=== PATIENT | female | born 1950 | race Caucasian/White ===

== ENCOUNTER 2018-07-24 09:24 | Outpatient (CLI) | payer MEDICARE, OTHER, SELFPAY ==
--- NOTE | 2018-07-24 09:15 | DI.MAMMO_ITS ---
SYMPTOM/DIAGNOSIS: SCREENING, Z12.31 BILATERAL SCREENING MAMMOGRAM: Mammograms were interpreted according to the usual protocol including computer analysis with CAD system, tomosynthesis and C view imaging. Comparison is made with exams from 2011 through 2017. The breasts are composed of heterogeneously dense fibroglandular tissue. Breast density category C. There is a question of an area of architectural distortion in the upper outer quadrant of the right breast vs overlying fibroglandular tissue. Spot compression views and ultrasound are requested for further evaluation. No suspicious calcifications are seen in either breast. There has been no change in the appearance of the left breast. IMPRESSION: Left breast category 1, negative. Breast density category C. Right breast category 0. SA ASSESSMENT OF FINDINGS: Incomplete: Needs additional imaging evaluation. Category 0. Patient will receive a letter notifying them of these results. Bi-RADS category C. The breasts are heterogeneously dense, which may obscure small masses.
== END 2018-07-24 09:44 ==
PROVIDERS: PCP Nurse Practitioner Family; Visit Provider Nurse Practitioner Family
DX: Z12.31 Encounter for screening mammogram for malignant neoplasm of breast (principal); R92.8 Other abnormal and inconclusive findings on diagnostic imaging of breast
CPT/HCPCS: 77063; 77067

== ENCOUNTER 2018-07-31 00:39 | Outpatient (CLI) | payer MEDICARE, OTHER, SELFPAY ==
--- NOTE | 2018-07-31 14:27 | DI.COMBO_ITS ---
SYMPTOMS/DIAGNOSIS: F/U MAMMO, ? AREA OF ARCHITECTURAL DISTORTION UPPER OUTER QUAD RT BREAST VS OVERLYING FIBROGLANDULAR TISSUE ADDITIONAL VIEWS OF THE RIGHT BREAST AND RIGHT BREAST ULTRASOUND: Additional images are interpreted according to the usual protocol including tomosynthesis and 2D imaging. Breast density C. The area of architectural distortion persists in the outer right breast. A right breast ultrasound was performed. The upper outer and lower outer quadrants were evaluated sonographically. There is a hypoechoic spiculated area at the 9:00 o'clock position of the right breast lateral to the nipple. There is posterior acoustic shadowing present. The area measures 0.8 cm x 1 cm x 0.7 cm. This appears to correspond to the mammographic abnormality. IMPRESSION: 1 cm spiculated hypoechoic mass at the 9:00 o'clock position of the right breast. The finding is suspicious for malignancy. Biopsy is recommended. Category 5. The findings were discussed with the patient and Yuko Lomeli on the date of the examination. MQSA ASSESSMENT OF FINDINGS: Highly suspicious of malignancy. Biopsy should be obtained. Category 5. Patient will receive a letter notifying them of these results. Bi-RADS category C. The breasts are heterogeneously dense, which may obscure small masses.
== END 2018-07-31 00:59 ==
PROVIDERS: PCP Nurse Practitioner Family; Visit Provider Nurse Practitioner Family
DX: Z12.31 Encounter for screening mammogram for malignant neoplasm of breast (principal); R92.8 Other abnormal and inconclusive findings on diagnostic imaging of breast; N63.11 Unspecified lump in the right breast, upper outer quadrant
CPT/HCPCS: 76642; 77063; 77067

== ENCOUNTER 2018-11-17 18:12 | Emergency (ER) | payer MEDICARE, OTHER, SELFPAY ==
[2018-11-17 18:17] VITALS: BP 159/82; PULSE 120; RESP 20; TEMP 36.7; O2SAT 95
[2018-11-17] MEDS: Normal Saline 1,000 ML 1000 ML IV (18:45)
[2018-11-17] MEDS: Albuterol/Ipratropium 3 ML UPD VIAL 6 ML UPD (18:45)
--- NOTE | 2018-11-17 18:51 | DI.RAD_ITS ---
SYMPTOM/DIAGNOSIS: COUGH, WHEEZE, ? PNEUMONIA PA AND LATERAL CHEST: Comparison is made with 07/03/08. The heart size is normal. The lungs are hyperinflated and show mild parenchymal scarring and increased interstitial changes, worsening when compared with the previous exam. No acute infiltrate, effusion or pulmonary edema is seen. IMPRESSION: No acute abnormality.
[2018-11-17 19:00] LABS: Abs Immature Grans 0.01 k/cumm (0.0-0.09); Absolute Basophil Count 0.09 k/cumm (0.0-0.2); Absolute Eosinophil Count 0.65 k/cumm (0.0-0.7); Absolute Lymphocyte Count 1.42 k/cumm (1.2-3.4); Absolute Monocyte Count 0.36 k/cumm (0.11-0.7); Absolute Neutrophil Count 2.69 k/cumm (1.2-6.7); Basophils % 1.7; Eosinophils % 12.5; HCT 41.3 % (36.0-46.0); HGB 13.4 g/dL (12.0-15.5); Immature Grans % 0.2; Lymphocytes % 27.2; Mean Corp. HGB Concentration 32.4 g/dL (32.0-36.0); Mean Corpuscular Hemoglobin 29.5 pg (27.0-33.0); Mean Corpuscular Volume 90.8 fL (80-95); Mean Platelet Volume 10.9 fL (8.0-11.0); Monocytes % 6.9; Neutrophils % 51.5; Platelet Count 258 x1000/uL (130-400); RBC 4.55 m/cumm (4.00-5.20); RBC Distribution Width 12.7 % (11.7-14.6); White Blood Cell Count 5.22 k/cumm (4.4-10.8)
[2018-11-17 19:13] LABS: ALT 15 U/L (12-78); AST 14 U/L (15-37); Albumin 4.1 g/dL (3.4-5.0); Alkaline Phosphatase 94 U/L (46-116); Anion Gap 8.8 mmol/L (3-11); BUN 11 mg/dL (7-18); Bilirubin, Total 0.6 mg/dL (0.2-1.0); CO2 27.2 mmol/L (21.0-32.0); CREATININE 0.96 mg/dL (0.55-1.02); Chloride 105 mmol/L (98-107); Glucose 97 mg/dL (70-100); Potassium 3.3 mmol/L (3.5-5.1); Sodium 141 mmol/L (136-145); Total Protein 7.8 g/dL (6.4-8.2)
--- NOTE | 2018-11-17 19:13 | DI.VRAD_ITS ---
EXAM: XR Chest, 2 Views EXAM DATE/TIME: 11/17/2018 6:53 PM CLINICAL HISTORY: 68 years old, female; Signs and symptoms; Cough and wheezing; Patient HX: Cough, wheezing, suspect pneumonia. TECHNIQUE: Imaging protocol: XR of the chest, 2 views. COMPARISON: No relevant prior studies available. FINDINGS: Lungs: Mild hyperinflation with no airspace consolidation. Pleural space: No pleural effusion. No pneumothorax. Heart/Mediastinum: No cardiomegaly. Vasculature: Tortuous descending thoracic aorta. Bones/joints: Lumbar levoscoliosis. Exaggerated thoracic kyphosis. Degenerative changes in the spine. IMPRESSION: Mild hyperinflation with no airspace consolidation. Dictated and Authenticated by: Sheryl Chaney MD. Ordering:PATRIC José MD
[2018-11-17 19:18] LABS: Troponin I < 0.02 ng/mL (0.00-0.06)
--- NOTE | 2018-11-17 19:25 | ED.GENADUL_ITS ---
Discharge Plan Disposition Patient Disposition: HOME Condition: Good Discharge Details Chief Complaint: RespSymp Clinical Impression: RAD (reactive airway disease), Bronchitis Reason For Visit: cough Primary Care Provider: Yuko Lomeli ED Provider: Arnav Avila Home Meds and New Rx's Prescriptions: No Action benzonatate 100 mg Capsule 100 mg PO TID PRNRF: 0 amoxicillin-pot clavulanate [Augmentin] 875-125 mg Tablet 1 tab PO BID RF: 0 Probiotic 100 billion cell Capsule 1 cap PO DAILY RF: 0 Discharge Instructions Instructions: Acute Bronchitis (ED), Reactive Airways Disease (ED) Additional Instructions: Please continue taking your antibiotic, and inhaler as directed. If you notice any worsening of your symptoms, or any new symptoms such as vomiting, diarrhea, fever, chills, shortness of breath, chest pain, numbness, weakness, or fainting , please return immediately to the emergency department for reevaluation. Please follow up with your primary care provider as soon as possible for reassessment and reevaluation. As always, it was a pleasure participating in your medical care today. Referrals: Yuko Lomeli [Primary Care Provider] - Medical Decision Making This is a 68-year-old female with a past medical history of lumpectomy, breast cancer, who recently had surgical excision with complete removal of the lesion. For the last 2 weeks the patient has had a mild cold, start with upper respiratory congestion-like symptoms, followed by a cough. She has had a cough for the last week, with productive yellow sputum. Patient was started on Augmentin and Tessalon Perles 1 day ago and was actually noticing an improvement of her symptoms. However 1 hour prior to arrival the patient had a notable coughing fit, and came to the ER for evaluation. Upon arrival to the ER the coughing fit had resolved, physical exam did demonstrate mild wheezes in the lungs, she otherwise had no chest pain, shortness of breath, arm neck or shoulder pain whatsoever. Signs and symptoms are inconsistent with cardiac etiology. 16 the patient was given a breathing treatment and had notable improvement of her wheeze and states that she feels much better with that. We did get a chest x-ray which shows no evidence of acute severe pneumonia. For the patient's productive cough, and symptomatology I do feel that is certainly reasonable to continue the Augmentin and Tessalon Perles at home. Initially the patient's heart rate was 120 when she first arrived, she states that she was notably anxious, however within a few minutes her heart rate went to a normal level. The patient's laboratory workup is returned and demonstrates normal white count, normal hemoglobin, normal electrolytes aside for slightly low potassium, normal troponin. Patient signs and symptoms are clinically consistent with bronchitis and mild community-acquired pneumonia, inconsistent clinically at this time with severe PE, ACS, dissection. As patient is feeling notably better, and is requesting discharge home which I do feel is reasonable at this time. I had a long discussion with her regarding red flags which to return, as well as the importance of close follow-up and she and family agree. We will add an inhaler for home use. I have extensively reviewed the treatment plan and discharge instructions with the patient and their family. I have addressed all patient concerns at this time. The patient and family was made aware of what symptoms to monitor for that would warrant a return to the emergency department. Discussed the plan with the patient and family, they demonstrate verbal understanding and agreement with our assessment and plan at this time. EKG 19: 39 Rate 90, intervals normal, sinus rhythm, no significant ST elevations or depression, no Q waves, inverted T wave in V1. No evidence of STEMI. HPI General Date/Time Provider Initiated Documentation: 11/17/18 18:13 . HPI Narrative: This is a 68-year-old female with a past medical history of right- sided breast cancer, with subsequent lumpectomy in August who is scheduled to have radiation therapy later this year, who presents today for evaluation of cough. Patient states that for the last 2 weeks she has had a mild cough, she was seen and assessed by her primary care provider, who started her on Augmentin and Tessalon Perles. Patient states that she has been taking this for the last day and a half and has been doing very well, however roughly 1 hour prior to arrival the patient had a very brief choking episode secondary to sputum, and felt notably short of breath at that time. She was coughing for roughly an hour however by the time that she arrived in the ER the cough had completely resolved and she was feeling much better. She denies any chest pain, symptoms of shortness of breath, pleuritic chest pain, chest heaviness, arm neck or shoulder pain. She denies any history of cardiac disease. She has no other complaints at this time. Additionally the patient states that over the last day and a half she has been taking the antibiotic she has actually been starting to feel much better than she was before. She denies any significant fever, chills, vomiting, diarrhea. She does admit to some productivity for her cough with yellow sputum. Related Data Home Medications Medication Instructions Recorded Confirmed Lactobac 40-Bifido 3-S.thermop 1 cap PO DAILY 11/17/18 11/17/18 [Probiotic] amoxicillin-pot clavulanate 1 tab PO BID 11/17/18 11/17/18 [Augmentin] benzonatate 100 mg PO TID PRN 11/17/18 11/17/18 Allergies Allergy/AdvReac Type Severity Reaction Status Date / Time No Known Allergies Allergy Unverified 11/17/18 18:26 General Stated Complaint: RespSymp ROSSY: 3 Review of Systems Review of Systems All systems reviewed & are unremarkable except as noted in HPI and below PFSH Medical History Retinal tear of right eye (Acute) Breast CA (Chronic) Surgical History History of cataract surgery (Chronic) Social History Smoking/Tobacco Use Status: Never Alcohol Intake: current Drug use: Never Do you feel safe at home: Yes Exam Narrative Exam Narrative: 1.Const: Well-nourished, Well-developed, appearing stated age 2.Eyes: PERRL, no conjunctival injection, and symmetrical lids. 3.ENT: Atraumatic external nose and ears. Moist MM. Neck: Symmetric, trachea midline, No thyromegaly. 4.CVS: +S1/S2, No murmurs or gallops. Peripheral pulses 2+ and equal in all extremities. Brisk capillary refill in all extremities. 5.RESP: Unlabored respiratory effort. Minimal wheezes in the lower lung elias. Minimal crackles, no signs of respiratory distress. 6.GI: Soft, Nontender/Nondistended, No hepatosplenomegaly. No guarding or rebound. 7.MSK: Normocephalic/Atraumatic, Extremities w/o deformity or ttp No cyanosis or clubbing, Normal movement of all extremities 8.Skin: Warm, Dry. No rashes or lesions. 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 Sensation grossly intact, no focal neurolog ic deficits. 10.Psych: (AAO) x3. Appropriate mood and affect Course Vital Signs Temperature 36.7 C 11/17/18 18:17 Pulse 120 H 11/17/18 18:17 Respiratory Rate 20 11/17/18 18:17 Blood Pressure 159/82 H 11/17/18 18:17 Pulse Oximetry 95 11/17/18 18:17 Temperature 36.7 C 11/17/18 18:17 Temperature Source Skin 11/17/18 18:17 Pulse 120 H 11/17/18 18:17 Respiratory Rate 20 11/17/18 18:17 Respiratory Effort 11/17/18 18:21 Blood Pressure 159/82 H 11/17/18 18:17 Pulse Oximetry 95 11/17/18 18:17 Pain Level 1 11/17/18 18:17 Lab/Test Results Lab/Test Results: Laboratory Tests Range/Units 11/17/18 18:44 WBC (4.4-10.8) k/cumm 5.22 RBC (4.00-5.20) m/cumm 4.55 Hgb (12.0-15.5) g/dL 13.4 Hct (36.0-46.0) % 41.3 MCV (80-95) fL 90.8 MCH (27.0-33.0) pg 29.5 MCHC (32.0-36.0) g/dL 32.4 RDW (11.7-14.6) % 12.7 Plt Count (130-400) x1000/uL 258 MPV (8.0-11.0) fL 10.9 Immature Gran % 0.2 Neutrophils % 51.5 Lymphocytes % 27.2 Monocytes % 6.9 Eosinophils % 12.5 Basophils % 1.7 Absolute Neutrophils (1.2-6.7) k/cumm 2.69 Absolute Lymphocytes (1.2-3.4) k/cumm 1.42 Absolute Monocytes (0.11-0.7) k/cumm 0.36 Absolute Eosinophils (0.0-0.7) k/cumm 0.65 Absolute Basophils (0.0-0.2) k/cumm 0.09
[2018-11-17] MEDS: Potassium Chloride 20 MEQ TABCR 40 MEQ PO (19:47)
[2018-11-17] MEDS: Albuterol HFA 8 GM 60 PUFF INH IH (20:08)
[2018-11-17 20:09] VITALS: BP 150/57; PULSE 98; RESP 16
== END 2018-11-17 20:22 | disposition home or self-care (01) ==
PROVIDERS: Emergency Provider Student in an Organized Health Care Education/Training Program; PCP Nurse Practitioner Family
DX: J45.909 Unspecified asthma, uncomplicated (principal); R00.0 Tachycardia, unspecified
CPT/HCPCS: 36415; 80053; 93005; 94640; 96360; 99285; 71046; 84484; 85025; 93010; J7620

== ENCOUNTER 2018-12-10 19:29 | Emergency (ER) | payer MEDICARE, OTHER, SELFPAY ==
[2018-12-10 19:44] LABS: Bilirubin Negative (Negative); Blood Negative (Negative); Clarity Clear; Glucose Negative (Negative); Ketones Negative (Negative); Leukocyte Esterase Negative (Negative); Nitrite Negative (Negative); Specific Gravity <= 1.005 (1.005-1.025); Urobilinogen 0.2 EU/dL (Up TO 0.2)
[2018-12-10 19:48] VITALS: BP 135/70; PULSE 89; RESP 17; TEMP 37.1; O2SAT 99
--- NOTE | 2018-12-10 20:05 | ED.GENADUL_ITS ---
Discharge Plan Disposition Patient Disposition: HOME Condition: Stable Discharge Details Chief Complaint: Dizzy/Sync Clinical Impression: Tremor, Vertigo Primary Care Provider: Yuko Lomeli ED Provider: Arjun Yen Home Meds and New Rx's Prescriptions: New meclizine 25 mg tablet 25 mg PO BID-TID PRN (Reason: dizziness) Qty: 30 RF: 0 amoxicillin-pot clavulanate [Augmentin] 875-125 mg tablet 1 tab PO BID Qty: 14 RF: 0 No Action benzonatate 100 mg Capsule 100 mg PO TID PRNRF: 0 amoxicillin-pot clavulanate [Augmentin] 875-125 mg Tablet 1 tab PO BID RF: 0 Probiotic 100 billion cell Capsule 1 cap PO DAILY RF: 0 Discharge Instructions Instructions: Vertigo (ED) Additional Instructions: Follow up with your primary care provider within 1 week for repeat evaluation if you feel you are becoming more ill, develop fevers or difficulty breathing return to the emergency department Medical Decision Making 68 yo female with hx of breast cancer undergoing radiation and had surgery over a month ago per pt, comes in with chief complaint of feeling shaky and dizzy for about a month. Denies chest william, sob, feeling as though she may pass out. She states her arms shake and that she feels unsteady. She describes her dizziness as intermittent room spinning. She currently has no focal neuro deficits, NIH of 0 and has a steady gait. She does have an action tremor of the hands and arms on exam . She has no weakness. I suspect her symptoms are due to her tremor but dolores delfina for electrolyte abnormalities. NO evidence of cva given noraml neuro exam. Given her age will obtain head ct to eval for possible mets vs sdh. No chest pain, sob or lightheadedness/syncope so doubt cardiacetiology such as arrythmia, acs, and no jhypoxia, tachycardia or evidence of dvt on exam so doubt PE at this time. No neck pain and steady gait so doubt dissection pt remains stable with no neuro deficits. Labs and imaging unremarkable other than sinusitis and she now does state she's had over a week of sinus pressure so kvng tx for this. Will have her f/u with pcp and return precautions given Differential Diagnosis essential tremor, electrolyte abnormality, sdh Medical Records Medical records reviewed: Yes I reviewed the patient's medical records. Imaging Data Radiologic Study: Attestation: I personally reviewed and interpreted this imaging study as follows: Imaging: CT Scan Radiologist's impression: IMPRESSION: 1. No acute intracranial abnormality. 2. Paranasal sinus inflammatory disease with fluid level in the left maxillary sinus, which may be seen with acute sinusitis. Lab Data Lab results reviewed: Yes I reviewed the patient's lab results. ECG Data Attestation: I personally reviewed and interpreted this ECG (s) as follows: Prior ECG tracings: available for review Interpretation: sinus rhythm, rate of 70, pr 154, no acute st t wave ischemic changes HPI General Mode of arrival: ambulatory . Date/Time Provider Initiated Documentation: 12/10/18 19:56 . Limitations to Documentation: no limitations . History of Present Illness 68 year old F presents to the emergency department with the chief complaint of shaky, described as moderate, Patient started experiencing this month(s) (1) and it has been constant. No relieving factors improve symptom(s), No exacerbating factors reported . Patient did receive the following treatments prior to arrival, none Related Data Home Medications Medication Instructions Recorded Confirmed Lactobac 40-Bifido 3-S.thermop 1 cap PO DAILY 11/17/18 11/17/18 [Probiotic] amoxicillin-pot clavulanate 1 tab PO BID 11/17/18 11/17/18 [Augmentin] benzonatate 100 mg PO TID PRN 11/17/18 11/17/18 amoxicillin-pot clavulanate 1 tab PO BID #14 tab 12/10/18 [Augmentin] meclizine 25 mg PO BID-TID PRN #30 tab 12/10/18 Previous Rx's Medication Instructions Recorded amoxicillin-pot clavulanate 1 tab PO BID #14 tab 12/10/18 [Augmentin] meclizine 25 mg PO BID-TID PRN #30 tab 12/10/18 Allergies Allergy/AdvReac Type Severity Reaction Status Date / Time No Known Allergies Allergy Unverified 11/17/18 18:26 General Stated Complaint: Dizzy/Sync ROSSY: 3 Review of Systems Review of Systems All systems reviewed & are unremarkable except as noted in HPI and below Constitutional Denies chills and Denies fever(s) Eyes Denies loss of vision ENT Denies change in voice Cardiovascular Denies chest pain and Denies dyspnea Respiratory Denies cough and Denies dyspnea Gastrointestinal Denies abdominal pain and Denies vomiting Genitourinary Denies dysuria Musculoskeletal Denies joint swelling Integumentary/Breasts Denies rash Neurologic Denies loss of vision Psychiatric Denies depression Endocrine Denies cold intolerance and Denies heat intolerance [facility] Medical History Retinal tear of right eye (Acute) Breast CA (Chronic) Surgical History History of cataract surgery (Chronic) Social History Smoking/Tobacco Use Status: Never Alcohol Intake: current Drug use: Never Do you feel safe at home: Yes Exam Const General: no acute distress Orientation: alert HENMT Head: normal to inspection Ears: external ears normal General nose exam: external nose normal Mouth: moist mucous membranes Eyes General: appearance normal, both eyes and all related structures Neck Neck: normal visual inspection Resp Effort & Inspection: normal respiratory effort and able to speak in complete sentences Cardio Rate: regular rate Skin General skin exam: no rashes or lesions noted Neuro General: alert and oriented x3 Extrem General: normal to inspection Psych Mental Status: mental status grossly normal Course Vital Signs Temperature 37.1 C 12/10/18 19:48 Pulse 89 12/10/18 19:48 Respiratory Rate 17 12/10/18 19:48 Blood Pressure 135/70 12/10/18 19:48 Pulse Oximetry 99 12/10/18 19:48 Temperature 37.1 C 12/10/18 19:48 Temperature Source Temporal Artery Scan 12/10/18 19:48 Pulse 89 12/10/18 19:48 Respiratory Rate 17 12/10/18 19:48 Blood Pressure 135/70 12/10/18 19:48 Blood Pressure Position Sitting 12/10/18 19:48 Pulse Oximetry 99 12/10/18 19:48 Oxygen Delivery Method Room Air 12/10/18 19:48 Oxygen Flow Rate 0 12/10/18 19:48 Pain Level 0 12/10/18 19:48 Lab/Test Results Lab/Test Results: Laboratory Tests Range/Units 12/10/18 19:39 Urine Color (Yellow) Yellow Urine Clarity Clear Urine pH (5-8) 6.0 Ur Specific [place] (1.005-1.025) <= 1.005 Urine Protein (Negative) mg/dL Negative Urine Ketones (Negative) mg/dL Negative Urine Blood (Negative) Negative Urine Nitrite (Negative) Negative Urine Bilirubin (Negative) Negative Urine Urobilinogen (Up TO 0.2) EU/dL 0.2 Ur Leukocyte Esterase (Negative) Negative Urine Glucose (Negative) mg/dL Negative
--- NOTE | 2018-12-10 20:30 | DI.CT_ITS ---
SYMPTOM/DIAGNOSIS: VERTIGO CRANIAL CT: 12/10/[address] was performed. There is moderate generalized cerebral atrophy. There is no evidence of acute intracranial hemorrhage, mass effect or midline shift. Note is made of mild mucoperiosteal thickening of the paranasal sinuses and there is predominant opacification of left frontal sinus and an air fluid level in left maxillary sinus. The findings are consistent with acute and/or chronic sinusitis. Mastoid air cells appear fairly well maintained. Temporal bone structures and orbital structures are unremarkable. CONCLUSION: No evidence of acute intracranial process. Chronic and/or acute sinusitis noted as described above.
--- NOTE | 2018-12-10 20:42 | DI.VRAD_ITS ---
EXAM: CT Head Without Contrast EXAM DATE/TIME: 12/10/2018 8:03 PM CLINICAL HISTORY: 68 years old, female; Signs and symptoms; Other: Vertigo; Patient HX: Dizziness x1 month, no recent trauma, patient sts has had sinus troubles since august. TECHNIQUE: Imaging protocol: Axial computed tomography images of the head/brain without contrast. Coronal and sagittal reformatted images were created and reviewed. Radiation optimization: All CT scans at this facility use at least one of these dose optimization techniques: automated exposure control; mA and/or kV adjustment per patient size (includes targeted exams where dose is matched to clinical indication); or iterative reconstruction. COMPARISON: No relevant prior studies available. FINDINGS: Brain: Global cerebral atrophy is consistent with patient's age. No intracranial hemorrhage or mass effect. No CT scan evidence of acute stroke. Ventricles: Mild ventriculomegaly, consistent with mild global cerebral atrophy. Bones/joints: Unremarkable. No acute fracture. Sinuses: Mucosal thickening of the paranasal sinuses with fluid level in the left maxillary sinus, which may be seen with acute sinusitis. Mastoid air cells: Visualized mastoid air cells are unremarkable. No mastoid effusion. Soft tissues: Unremarkable. IMPRESSION: 1. No acute intracranial abnormality. 2. Paranasal sinus inflammatory disease with fluid level in the left maxillary sinus, which may be seen with acute sinusitis. Dictated and Authenticated by: Darryl Tracey MD. Ordering:VIBHA Díaz MD
[2018-12-10 20:50] LABS: Abs Immature Grans 0.01 k/cumm (0.0-0.09); Absolute Basophil Count 0.04 k/cumm (0.0-0.2); Absolute Eosinophil Count 0.26 k/cumm (0.0-0.7); Absolute Lymphocyte Count 1.02 k/cumm (1.2-3.4); Absolute Monocyte Count 0.46 k/cumm (0.11-0.7); Absolute Neutrophil Count 3.99 k/cumm (1.2-6.7); Basophils % 0.7; Eosinophils % 4.5; HCT 39.9 % (36.0-46.0); HGB 12.9 g/dL (12.0-15.5); Immature Grans % 0.2; Lymphocytes % 17.6; Mean Corp. HGB Concentration 32.3 g/dL (32.0-36.0); Mean Corpuscular Hemoglobin 29.5 pg (27.0-33.0); Mean Corpuscular Volume 91.3 fL (80-95); Mean Platelet Volume 10.3 fL (8.0-11.0); Platelet Count 251 x1000/uL (130-400); RBC 4.37 m/cumm (4.00-5.20); RBC Distribution Width 12.6 % (11.7-14.6); White Blood Cell Count 5.78 k/cumm (4.4-10.8)
[2018-12-10 20:58] VITALS: RESP 16
[2018-12-10 21:03] LABS: PTT Activated 24.3 sec (21.0-31.4)
[2018-12-10 21:04] LABS: ALT 14 U/L (12-78); AST 15 U/L (15-37); Albumin 4.1 g/dL (3.4-5.0); Alkaline Phosphatase 83 U/L (46-116); Anion Gap 8.2 mmol/L (3-11); BUN 11 mg/dL (7-18); Bilirubin, Total 0.7 mg/dL (0.2-1.0); CO2 29.8 mmol/L (21.0-32.0); CREATININE 0.82 mg/dL (0.55-1.02); Calcium 9.4 mg/dL (8.5-10.1); Chloride 107 mmol/L (98-107); Glucose 100 mg/dL (70-100); Magnesium 2.1 mg/dL (1.8-2.4); Potassium 4.1 mmol/L (3.5-5.1); Sodium 145 mmol/L (136-145); Total Protein 7.6 g/dL (6.4-8.2)
[2018-12-10 21:13] LABS: TSH (W/Ref FT4) 1.84 uIU/mL (0.358-3.74)
[2018-12-10 21:28] VITALS: BP 132/70; PULSE 90; RESP 16; TEMP 37.1; O2SAT 99
[2018-12-10] MEDS: Amoxicillin 875/Clav. 125 TAB PO (21:28)
== END 2018-12-10 21:33 | disposition home or self-care (01) ==
PROVIDERS: Emergency Provider Emergency Medicine; PCP Nurse Practitioner Family
DX: R25.1 Tremor, unspecified (principal); R42 Dizziness and giddiness
CPT/HCPCS: 36415; 80053; 93005; 99285; 70450; 81003; 83735; 84443; 85025; 85610; 85730; 93010; L3670

== ENCOUNTER 2018-12-14 11:40 | Emergency (ER) | payer MEDICARE, OTHER, SELFPAY ==
[2018-12-14 11:44] VITALS: BP 134/82; PULSE 102; RESP 18; TEMP 36.9; O2SAT 98
[2018-12-14 12:05] VITALS: RESP 16
[2018-12-14] MEDS: Meclizine 25 MG TAB (12:05)
--- NOTE | 2018-12-14 12:12 | ED.GENADUL_ITS ---
Discharge Plan Disposition Patient Disposition: HOME Condition: Good Discharge Details Chief Complaint: Dizzy/Sync Clinical Impression: Dehydration, Dizziness Primary Care Provider: Yuko Lomeli ED Provider: Arnav Avila Home Meds and New Rx's Prescriptions: No Action Probiotic 100 billion cell Capsule 1 cap PO DAILY RF: 0 meclizine 25 mg tablet 25 mg PO BID-TID PRN (Reason: dizziness) Qty: 30 RF: 0 amoxicillin-pot clavulanate [Augmentin] 875-125 mg tablet 1 tab PO BID Qty: 14 RF: 0 Discharge Instructions Instructions: Dehydration (ED), Dizziness (ED) Additional Instructions: Please drink 10-12 cups of water or fluid that is non-caffeinated per day. Please take the main 2-3 times per day. If you notice any worsening of your symptoms, or any new symptoms such as vomiting, diarrhea, fever, chills, shortness of breath, chest pain, numbness, weakness, or fainting , please return immediately to the emergency department for reevaluation. Please follow up with your primary care provider as soon as possible for reassessment and reevaluation. As always, it was a pleasure participating in your medical care today. Referrals: Yuko Lomeli [Primary Care Provider] - Medical Decision Making This is a pleasant 68-year-old female who presents today for evaluation of dizziness. This been present for the last 2-3 weeks, she was seen and assessed here 4 days ago, where she had a notably benign workup, negative CT scan of the head, and had complete resolution of her symptoms with meclizine. She is discharged home with meclizine and Augmentin, unfortunately she has not been taking the meclizine for unknown reasons. However she did take 1 dose yesterday which did resolve her dizziness at that time. She denies any concerning red flags of headache, fever, neck pain, chills, vomiting, diarrhea. She has been drinking but not been drinking much fluid. She does have occasional ringing in her ears, but she denies any focal weakness, cardiac symptoms of chest pain, shortness of breath or chest heaviness, she denies any other concerning red flags. She has no history of stroke or ID. Physical exam demonstrates dry tongue, but it is notably reassuring exam with no focal neurologic deficits, cerebellar function testing demonstrates no signs of concerning neurologic deficit or signs of cerebellar stroke. She does demonstrate mild horizontal nystagmus. I feel her symptoms are most likely secondary to medical noncompliance, dehydration, and chronic BPPV. Did get an EKG, shows no significant or concerning abnormalities or dysrhythmias. I discussed IV, labs, versus oral hydration and meclizine. At this time the patient is requesting to hold off on additional labs and we will give meclizine here rehydrate orally and reassess. Feel that this is notably reasonable especially in the absence of neurologic deficits, or other focal abnormalities in conjunction with her benign workup performed 4 days ago. 4:45 PM The patient has drank 2 cups of water, she is taking the meclizine and has co mplete resolution of her symptoms. Repeat neurologic exam demonstrates no focal abnormalities. She is feeling much better and would like to go home, I think this is extremely reasonable in the current setting. Vital signs remained normal, repeat heart rate on my exam is 86 at bedside. I recommend close follow-up with her PCP, drinking at least 10-12 cups of water per day especially with her other comorbidities and symptoms. Recommend continuing taking the meclizine as directed. I have extensively reviewed the treatment plan and discharge instructions with the patient and their family. I have addressed all patient concerns at this time. The patient and family was made aware of what symptoms to monitor for that would warrant a return to the emergency department. Discussed the plan with the patient and family, they demonstrate verbal understanding and agreement with our assessment and plan at this time. EKG 12: 01 Rate 66, intervals normal, sinus rhythm, no significant ST elevations or depressions, inverted T wave in V1. No Q waves. HPI General Date/Time Provider Initiated Documentation: 12/14/18 11:41 . HPI Narrative: This is a 68-year-old 68-year-old female with a past medical history of lumpectomy, breast cancer, who recently had surgical excision with complete removal of the lesion, currently receiving radiation therapy, who presents today for evaluation of dizziness. She was seen and assessed here in the ED 4 days ago by my colleague Dr. Yen. She had a thorough workup at that time demonstrating a negative head CT, and a benign workup. She was prescribed meclizine, as well as Augmentin for chronic sinusitis. The patient went home, she had been feeling well, however she is not been taking her meclizine. Her dizziness continued, she did take a meclizine yesterday which did resolve her symptoms, however today this dizziness was still mild but persistent, she has not taken any of her meclizine. In addition to this she did receive radiation yesterday, and has had some notable emotional stressors at her home recently. She denies any vomiting or diarrhea. She denies any headache, fever, chills, vision changes, numbness, tingling, or focal weakness. She denies any chest pain, chest pressure, shortness of breath, chest tightness, shoulder pain or neck pain. She denies any other complaints or associated symptoms. she denies any history of cardiac disease, stroke, or blood clot. She has no other complaints at this time. She denies any other modifying factors. Related Data Home Medications Medication Instructions Recorded Confirmed Lactobac 40-Bifido 3-S.thermop 1 cap PO DAILY 11/17/18 12/14/18 [Probiotic] amoxicillin-pot clavulanate 1 tab PO BID #14 tab 12/10/18 12/14/18 [Augmentin] meclizine 25 mg PO BID-TID PRN #30 tab 12/10/18 12/14/18 Previous Rx's Medication Instructions Recorded amoxicillin-pot clavulanate 1 tab PO BID #14 tab 12/10/18 [Augmentin] meclizine 25 mg PO BID-TID PRN #30 tab 12/10/18 Allergies Allergy/AdvReac Type Severity Reaction Status Date / Time No Known Allergies Allergy Unverified 12/14/18 11:45 General Stated Complaint: Dizzy/Sync ROSSY: 3 Review of Systems Review of Systems All systems reviewed & are unremarkable except as noted in HPI and below PFSH Social History Smoking/Tobacco Use Status: Never Alcohol Intake: current Drug use: Never Do you feel safe at home: Yes Exam Narrative Exam Narrative: 1.Const: Thin female, appearing stated age 2.Eyes: PERRL, no conjunctival injection, and symmetrical lids. 3.ENT: Atraumatic external nose and ears. Moist MM. Neck: Symmetric, trachea midline, No thyromegaly. 4.CVS: +S1/S2, No murmurs or gallops. Peripheral pulses 2+ and equal in all extremities. Brisk capillary refill in all extremities. Radial pulses +2 bilaterally 5.RESP: Unlabored respiratory effort. Clear to auscultation bilaterally. No wheezes rales or rhonchi 6.GI: Soft, Nontender/Nondistended, No hepatosplenomegaly. No guarding or rebound. 7.MSK: Normocephalic/Atraumatic, Extremities w/o deformity or ttp No cyanosis or clubbing, Normal movement of all extremities. No calf tenderness or lower extremity edema. 8.Skin: Warm, Dry. No rashes or lesions. 9.Neuro: inventory specialist II-XII grossly intact. Sensation grossly intact, no focal neurologic deficits. All 6 cardinal planes of vision are fully intact. No evidence of rotatory or vertical nystagmus. The patient demonstrated a normal epicqw-apkn-wdyzbj, good dexterity. There was no evidence of dysdiadochokinesia. Patient was able to ambulate without difficulty. There was no wide-based gait. Romberg, and ylal-dc-arci are both normal on testing. Sensation was intact bilaterally as well as muscle strength bilaterally for all extremities. Patient was able to verbalize butter cup with no slurring, or miss pronunciation. Cerebellar function testing is normal. The patient demonstrates a normal hints exam with no findings concerning for a central event. No vertical nystagmus. The head impulse test is negative for any significant central abnormality. Normal test of skew. No suggestion of a central cerebellar event. She does have evidence of horizontal nystagmus. 10.Psych: (AAO) x3. Appropriate mood and affect Course Vital Signs Temperature 36.9 C 12/14/18 11:44 Pulse 102 H 12/14/18 11:44 Respiratory Rate 18 12/14/18 11:44 Blood Pressure 134/82 12/14/18 11:44 Pulse Oximetry 98 12/14/18 11:44 Temperature 36.9 C 12/14/18 11:44 Temperature Source Temporal Artery Scan 12/14/18 11:44 Pulse 102 H 12/14/18 11:44 Respiratory Rate 18 12/14/18 11:44 Respiratory Effort Non-Labored 12/14/18 11:44 Blood Pressure 134/82 12/14/18 11:44 Blood Pressure Position Standing 12/14/18 11:44 Pulse Oximetry 98 12/14/18 11:44 Oxygen Delivery Method Room Air 12/14/18 11:44 Oxygen Flow Rate 0 12/14/18 11:44 Pain Level 0 12/14/18 11:44
[2018-12-14 12:49] VITALS: BP 128/62; PULSE 84; RESP 16; TEMP 36.9; O2SAT 98
== END 2018-12-14 12:50 | disposition home or self-care (01) ==
PROVIDERS: Emergency Provider Student in an Organized Health Care Education/Training Program; PCP Nurse Practitioner Family
DX: E86.0 Dehydration (principal); R42 Dizziness and giddiness
CPT/HCPCS: 99283

== ENCOUNTER 2019-09-06 09:11 | Outpatient (CLI) | payer OTHER, SELFPAY ==
[2019-09-06 09:45] LABS: Abs Immature Grans 0.01 k/cumm (0.0-0.09); Absolute Eosinophil Count 0.72 k/cumm (0.0-0.7); Absolute Lymphocyte Count 0.95 k/cumm (1.2-3.4); Absolute Monocyte Count 0.48 k/cumm (0.11-0.7); Absolute Neutrophil Count 4.42 k/cumm (1.2-6.7); Basophils % 1.5; Eosinophils % 10.8; HCT 39.9 % (36.0-46.0); HGB 12.6 g/dL (12.0-15.5); Immature Grans % 0.1 %; Lymphocytes % 14.2; Mean Corp. HGB Concentration 31.6 g/dL (32.0-36.0); Mean Corpuscular Hemoglobin 28.8 pg (27.0-33.0); Mean Corpuscular Volume 91.1 fL (80-95); Monocytes % 7.2; Neutrophils % 66.2; Platelet Count 290 x1000/uL (130-400); RBC 4.38 m/cumm (4.00-5.20); White Blood Cell Count 6.68 k/cumm (4.4-10.8)
[2019-09-06 10:00] LABS: ALT 13 U/L (14-59); AST 14 U/L (15-37); Albumin 3.5 g/dL (3.4-5.0); Alkaline Phosphatase 92 U/L (46-116); Anion Gap 9.8 mmol/L (3-11); BUN 8 mg/dL (7-18); Bilirubin, Total 0.4 mg/dL (0.2-1.0); CO2 28.2 mmol/L (21.0-32.0); CREATININE 0.86 mg/dL (0.55-1.02); Calcium 8.7 mg/dL (8.5-10.1); Chloride 108 mmol/L (98-107); Glucose 88 mg/dL (74-106); Sodium 146 mmol/L (136-145); Total Protein 7.1 g/dL (6.4-8.2)
== END 2019-09-06 09:31 ==
PROVIDERS: PCP Nurse Practitioner Family; Visit Provider Internal Medicine Hematology & Oncology
DX: C50.411 Malignant neoplasm of upper-outer quadrant of right female breast (principal); Z17.0 Estrogen receptor positive status [ER+]
CPT/HCPCS: 36415; 80053; 85025

== ENCOUNTER 2020-03-06 01:16 | Outpatient (CLI) | payer OTHER, SELFPAY ==
[2020-03-06 09:41] LABS: ALT 11 U/L (14-59); AST 13 U/L (15-37); Albumin 3.6 g/dL (3.4-5.0); Anion Gap 9.7 mmol/L (3-11); BUN 11 mg/dL (7-18); CO2 27.3 mmol/L (21.0-32.0); CREATININE 0.97 mg/dL (0.55-1.02); Calcium 8.5 mg/dL (8.5-10.1); Chloride 107 mmol/L (98-107); Estimated GFR 56.94 (mL/min/1.73m2); Glucose 93 mg/dL (74-106); Sodium 144 mmol/L (136-145)
[2020-03-06 09:53] LABS: Alkaline Phosphatase 86 U/L (46-116); Bilirubin, Total 0.7 mg/dL (0.2-1.0)
== END 2020-03-06 01:36 ==
PROVIDERS: PCP Nurse Practitioner Family; Visit Provider Internal Medicine Hematology & Oncology
DX: C50.411 Malignant neoplasm of upper-outer quadrant of right female breast (principal); Z17.0 Estrogen receptor positive status [ER+]
CPT/HCPCS: 36415; 80053

== ENCOUNTER 2020-05-20 00:50 | Outpatient (CLI) | payer OTHER, SELFPAY ==
--- NOTE | 2020-05-20 | DI.MAMMO_ITS ---
EXAM: MG MAMMO SCREENING 60 MIN DUR CLINICAL HISTORY: PERSONAL H/O BREAST CA,Z85.3,ANNUAL TECHNIQUE: Bilateral full field digital CC and MLO mammographic images were obtained with 3D tomosyn thesis and utilizing computer aided detection (CAD). COMPARISON: Available for comparison. FINDINGS: Masses/Architectural Distortion: None seen. Status post right lumpectomy. Microcalcifications: No suspicious pleomorphic-type are seen. Skin Thickening/Nipple Retraction: None. IMPRESSION: 1. No significant interval change with no specific features of malignancy noted. 2. Unless there is more urgent need, screening mammography is recommended, as per [employer] guidelines. BI-RADS Category 2 - Benign Findings Breast Density - Category C - Heterogeneously dense The mammogram demonstrates the patient's breast tissue is dense. Dense breast tissue is very common a nd is not abnormal but dense breast tissue can make it harder to find cancer on a mammogram. Also, de nse breast tissue may increase their breast cancer risk. This information about the result of the [facility] mogram report was provided to the patient to raise their awareness. Use this report when you speak wi th the patient about their risks for breast cancer, which includes their family history. At that time , you may recommend for more screening tests (Ultrasound or MRI) as they might be useful based on the ir risk. A negative radiographic report should not delay biopsy if a dominant or clinically suspicious mass is present. Up to ten percent of cancers are not identified on mammography. A negative report may reinforce clinical impression. Adenosis and dense breasts may obscure an underlying neoplasm. False positive reports average 6 to 10%. Patient will receive a letter notifying them of these results.
== END 2020-05-20 01:10 ==
PROVIDERS: PCP Nurse Practitioner Family; Visit Provider Nurse Practitioner Adult Health
DX: Z85.3 Personal history of malignant neoplasm of breast (principal); R92.2 Inconclusive mammogram
CPT/HCPCS: 77063; 77067

== ENCOUNTER → 2020-08-31 08:46 | Outpatient (CLI) | payer MEDICARE, SELFPAY | PROVIDERS: PCP Nurse Practitioner Family; Referring Provider Nurse Practitioner Family; Visit Provider Internal Medicine Cardiovascular Disease | DX: R07.89 Other chest pain (principal) | CPT/HCPCS: 93248 ==

== ENCOUNTER 2020-09-18 04:58 | Outpatient (CLI) | payer OTHER, SELFPAY ==
[2020-09-18 10:37] LABS: Abs Immature Grans 0.01 10^3/uL (0.0-0.06); Absolute Basophil Count 0.06 10^3/uL (0.0-0.2); Absolute Eosinophil Count 0.33 10^3/uL (0.0-0.7); Absolute Lymphocyte Count 1.08 10^3/uL (1.2-3.4); Absolute Neutrophil Count 2.62 10^3/uL (1.2-6.7); Basophils % 1.4; Eosinophils % 7.5; HCT 39.6 % (36.0-46.0); HGB 12.6 g/dL (11.2-15.7); Immature Grans % 0.2; Lymphocytes % 24.5; MCHC 31.8 % (32.0-36.0); MCV 91.2 fL (80-95); MPV 10.3 fL (8.0-11.0); Monocytes % 6.8; Neutrophils % 59.6; Nucleated RBC 0 %; Platelet Count 225 10^3/uL (130-400); RBC 4.34 10^6/uL (3.93-5.22); RDW 12.8 % (11.7-14.6)
[2020-09-18 10:50] LABS: ALT 17 U/L (14-59); AST 14 U/L (15-37); Albumin 3.6 g/dL (3.4-5.0); Alkaline Phosphatase 87 U/L (46-116); BUN 12 mg/dL (7-18); Bilirubin, Total 0.5 mg/dL (0.2-1.0); CREATININE 0.96 mg/dL (0.55-1.02); Calcium 8.7 mg/dL (8.5-10.1); Chloride 108 mmol/L (98-107); Estimated GFR 57.46 (mL/min/1.73m2); Glucose 86 mg/dL (74-106); Potassium 3.8 mmol/L (3.5-5.1); Sodium 142 mmol/L (136-145); Total Protein 7.2 g/dL (6.4-8.2)
== END 2020-09-18 05:18 ==
PROVIDERS: PCP Nurse Practitioner Family; Visit Provider Nurse Practitioner Family
DX: C50.411 Malignant neoplasm of upper-outer quadrant of right female breast (principal); Z17.0 Estrogen receptor positive status [ER+]; Z79.811 Long term (current) use of aromatase inhibitors
CPT/HCPCS: 36415; 80053; 85025

== ENCOUNTER 2021-03-26 14:27 | Outpatient (CLI) | payer OTHER, SELFPAY ==
[2021-03-26 11:00] LABS: ALT 17 U/L (14-59); AST 14 U/L (15-37); Albumin 3.7 g/dL (3.4-5.0); Alkaline Phosphatase 79 U/L (46-116); Anion Gap 7.8 mmol/L (3-11); BUN 10 mg/dL (7-18); Bilirubin, Total 0.5 mg/dL (0.2-1.0); CO2 28.2 mmol/L (21.0-32.0); CREATININE 0.9 mg/dL (0.55-1.02); Calcium 8.3 mg/dL (8.5-10.1); Chloride 109 mmol/L (98-107); Glucose 80 mg/dL (74-106); Potassium 4.2 mmol/L (3.5-5.1); Sodium 145 mmol/L (136-145); Total Protein 7.2 g/dL (6.4-8.2)
== END 2021-03-26 14:28 | disposition home or self-care (01) ==
LOC: LBO 14:28
PROVIDERS: PCP Nurse Practitioner Family; Visit Provider Internal Medicine Hematology & Oncology
DX: C50.411 Malignant neoplasm of upper-outer quadrant of right female breast (principal); Z17.0 Estrogen receptor positive status [ER+]
CPT/HCPCS: 36415; 80053

== ENCOUNTER → 2021-05-28 14:47 | Outpatient (BNVA) | payer MEDICARE, SELFPAY | PROVIDERS: PCP Nurse Practitioner Family; Referring Provider Nurse Practitioner Family; Visit Provider Physical Therapy Assistant | DX: Z12.11 Encounter for screening for malignant neoplasm of colon (principal) ==

== ENCOUNTER 2021-06-04 01:55 | Outpatient (CLI) | payer MEDICARE, SELFPAY ==
--- NOTE | 2021-06-04 | DI.MAMMO_ITS ---
Exam(s) MG MAMMO SCREENING 60 MIN DUR EXAM: MG MAMMO SCREENING 60 MIN DUR CLINICAL HISTORY: SCREENING,H/O RT BREAST CA,Z17.0 TECHNIQUE: Bilateral full field digital CC and MLO mammographic images were obtained with 3D tomosyn thesis and utilizing computer aided detection (CAD). COMPARISON: Available for comparison. FINDINGS: Masses/Architectural Distortion: None seen. The patient is status post right lumpectomy. Microcalcifications: No suspicious pleomorphic-type are seen. Skin Thickening/Nipple Retraction: None. IMPRESSION: 1. No significant interval change with no specific features of malignancy noted. 2. Unless there is more urgent need, screening mammography is recommended, as per [employer] guidelines. 3. Findings were discussed with the patient on the date of the examination. BI-RADS Category 2 - Benign Findings Breast Density - Category C - Heterogeneously dense Breast density category C or D implies that the patient has dense breast tissue. Dense breast tissue is very common and is not abnormal but dense breast tissue can make it harder to find cancer on a ma mmogram. Also, dense breast tissue may increase their breast cancer risk. This information about the result of the mammogram report was provided to the patient to raise their awareness. Use this report when you speak with the patient about their risks for breast cancer, which includes their family hist ory. At that time, you may recommend for more screening tests (Ultrasound or MRI) as they might be us eful based on their risk. A negative radiographic report should not delay biopsy if a dominant or clinically suspicious mass is present. Up to ten percent of cancers are not identified on mammography. A negative report may reinforce clinical impression. Adenosis and dense breasts may obscure an underlying neoplasm. False positive reports average 6 to 10%. Patient will receive a letter notifying them of these results.
== END 2021-06-04 02:15 ==
PROVIDERS: PCP Nurse Practitioner Family; Visit Provider Nurse Practitioner Family
DX: Z85.3 Personal history of malignant neoplasm of breast (principal); R92.8 Other abnormal and inconclusive findings on diagnostic imaging of breast; Z79.811 Long term (current) use of aromatase inhibitors; M81.0 Age-related osteoporosis without current pathological fracture; Z12.31 Encounter for screening mammogram for malignant neoplasm of breast
CPT/HCPCS: 77063; 77067

== ENCOUNTER 2021-06-10 03:36 | Outpatient (CLI) | payer MEDICARE, SELFPAY ==
[2021-06-10 12:39] LABS: Source Nasal/Nares
[2021-06-11 05:10] LABS: COVID-19 PCR Negative (Negative)
== END 2021-06-10 03:37 | disposition home or self-care (01) ==
LOC: LBO 03:37
PROVIDERS: PCP Nurse Practitioner Family; Visit Provider Surgery
DX: Z20.822 Contact with and (suspected) exposure to COVID-19 (principal)
CPT/HCPCS: 87635

== ENCOUNTER 2021-06-12 06:21 | Day surgery (SDC) | payer MEDICARE, SELFPAY ==
--- NOTE | 2021-06-11 10:56 | W.COLOREPORT ---
Colonoscopy Report Date of procedure: 06/12/21 Pre-op diagnosis general: family hx of polyp/+breast cancer Post-op diagnosis procedure note: same (diverticula ) Surgeon: Allison Griffiths Anesthesia Type: General:No Airway Prep: Miralax/Dulcolax Retraction Time: 8 Procedure Description: After informed consent was obtained the patient was taken to the procedure room and placed in a left decubitous position. Monitors were applied and a time out was done. The patients name, date of , procedure, allergies to medications and metal in their body was reviewed. The patient was then sedated. Once sedated and comfortable a rectal exam was done. External exam was normal. Internal exam revealed a normal sphincter tone and no palpable masses. The scope was then introduced and retrofelexed. no internal hemorrhoids were identified. The scope was then advanced to the cecum without difficulty. The TI and appendiceal orifice were identified. The prep was good. The scope was then slowly retracted over 8 minutes back into the rectum. Polyps were removed at . There were no polyps visualized today. She has moderate diverticula confined to the sigmoid colon. There is no signs of active bleeding infection. Otherwise the mucosa is pink and healthy. The scope was removed and the patient was woken up and taken back to Same day surgery in stable condition. The patient tolerated the procedure well and there were no immediate complications. Follow up: The patient no further routine screening colonoscopies are advised, unless they develop changes in bowel habits or other new gastrointestinal complaints.
--- NOTE | 2021-06-11 10:57 | PDOC.DSDIS_ITS ---
Discharge Plan Disposition Patient Disposition: HOME Condition: Good Discharge Details Reason For Visit: colon scope Attending Provider: Allison Griffiths Primary Care Provider: Yuko Lomeli Home Meds and New Rx's Prescriptions: Continued venlafaxine [Effexor XR] 37.5 mg capsule,extended release 24hr 37.5 mg PO DAILY RF: 0 meclizine 25 mg tablet 25 mg PO BID-TID PRN (Reason: dizziness) Qty: 30 RF: 0 anastrozole 1 mg tablet 1 mg PO HS RF: 0 Discontinued bisacodyl [Dulcolax (bisacodyl)] 5 mg tablet,delayed release (DR/EC) 5 mg PO ONCE Qty: 4 RF: 0 polyethylene glycol 3350 17 gram/dose powder 238 g PO ONCE Qty: 238 RF: 0 Discharge Instructions Additional Instructions: DSU Colonoscopy Post- Op Instructions Instructions for Everyone who is given Anesthesia: For your safety, please do the following for the next twenty-four (24) hours: *Do Not operate a motor vehicle (car, truck, motorcycle, etc.) *Do Not drink alcoholic beverages or use any recreational drugs for the first 24 hours or while taking pain medications. The medications in your body may have a reaction that can be dangerous. *Do Not make any important decisions or sign any important papers. Findings: Diverticula Make sure you are moving your bowels on a regular basis and not straining to go to the bathroom. Follow up: No further screening colonoscopies required unless you are having troubles with your bowels. 1. No lifting over 20 pounds or strenuous activity for the first 24 hours after your procedure. After 24 hours there are no restrictions on your activity but you may feel fatigued for a few days. 2. After you arrive home you may have a light meal and return to your normal diet as you can tolerate it without feeling sick to your stomach. 3. You may have a bloated, gaseous feeling in your belly (abdomen) after a colonoscopy. Passing gas and belching will help. Walking or lying down on your left side with your knees flexed may relieve the discomfort. Call the office at [phone] (Office) or [phone] (Hospital) right away if you notice any of the following: a.Vomiting of blood or ?coffee ground stools?. b.Rectal bleeding 1Tbsp, blood clots or continuous bleeding. c.Severe belly (abdominal) pain. d.A hard distended belly (abdomen) and an inability to pass gas. 4. Please don?t expect to have a normal BM (bowel movement) for 2-3 days after your procedure. 5. If there are questions regarding the findings of your procedure, please contact your doctor 6. If you are unable to contact your doctor with a problem, contact the hospital at [phone]. 7. Continue all your regular medications unless directed otherwise. I understand the above instructions and have no questions. Signature of Patient or Adult Escort Name of Responsible Adult Escort Signature of Nurse Date/Time Activity:: see above Diet:: see above Discharge Orders Discharge Orders: Discharge Order (Routine); Ordered 06/11/21 Ordered By: Allison Griffiths DS: Diagnosis Discharge Diagnosis (1) Family history of colonic polyps: Status: Acute (2) Breast CA: Status: Chronic (3) Diverticula of colon: Status: Acute
[2021-06-12 06:44] VITALS: BP 111/77; PULSE 80; RESP 18; TEMP 36.9; O2SAT 96
[2021-06-12] MEDS: Lactated Ringers 1,000 ML 80 ML IV (07:00)
--- NOTE | 2021-06-12 07:07 | W.ANESPRE ---
General Info Date of Service Date Performed: 06/12/21 Height: 5 ft Weight: 54.5 kg Body Mass Index (BMI): 23.4 Surgical Procedure: Operation Date: 06/12/21 07:35 Proposed Procedures Side Surgeon p Clarita Griffiths, Meds Allergies and Home Medications Allergies Allergy/AdvReac Type Severity Reaction Status Date / Time No Known Allergies Allergy Unverified 06/10/21 12:19 Home Medication Medication Instructions Recorded meclizine 25 mg PO BID-TID PRN #30 tab 12/10/18 bisacodyl 5 mg tablet,delayed 5 mg PO ONCE #4 tab 05/28/21 release polyethylene glycol 3350 17 238 g PO ONCE #238 g 05/28/21 gram/dose oral powder venlafaxine 37.5 mg 37.5 mg PO DAILY 05/28/21 capsule,extended release 24 hr anastrozole 1 mg PO HS 06/10/21 Current Visit Medications: Current Medications Generic Name Dose Route Start Last Admin Trade Name Freq PRN Reason Stop Dose Admin Ringer's Solution 1,000 mls @ 80 mls/hr 06/12/21 06:00 IV 07/11/21 23:59 INFUSION ROSALBA IV Miscellaneous Supplies 1 each 06/12/21 06:00 Iv Access IV 07/11/21 23:59 DIRECTED ROSALBA Sodium Chloride 0 ml 06/12/21 06:00 Normal Saline Flush 10 Ml Syr IV 07/11/21 23:59 PRN PRN Sodium Chloride 0 ml 06/12/21 06:00 Normal Saline 10 Ml Vial IJ 07/11/21 23:59 DIRECTED PRN Sterile Water 0 ml 06/12/21 06:00 Water,Injection,Sterile 10 Ml Vial IJ 07/11/21 23:59 DIRECTED PRN PFSH Active Problems Active Problems: Problem Status Onset Code Screening for colon cancer Z12.11 Family history of colonic polyps Z83.71 Breast CA C50.919 Medical History Medical History (Updated 06/12/21 @ 06:41 by Deborah Stark RN) Anxiety Breast CA right Retinal tear of right eye 2014 Surgical History Surgical History (Updated 06/12/21 @ 06:41 by Deborah Stark RN) History of cataract surgery right History of colonoscopy Hx of lumpectomy Tobacco Smoking/Tobacco Use Status: Never Alcohol Alcohol Intake: never Substance Use Substance use: Never Substance use type: does not use Vital Signs and Lab Results Vital Signs Most Recent Vital Signs in EMR: Most Recent Vital Signs Temp Pulse Resp BP Pulse Ox 36.9 C 108 H 18 111/77 96 06/12/21 06:44 06/12/21 06:44 06/12/21 06:44 06/12/21 06:44 06/12/21 06:44 Lab Results Blood Type / Crossmatch: No Data to Display Complete Blood Count: No Data to Display Complete Metabolic Panel: No Data to Display Liver Function Panel: No Data to Display Coagulation Panel: No Data to Display Cardiac Panel: No Data to Display Arterial Blood Gas: No Data to Display Venous Blood Gas: No Data to Display Pancreas Panel: No Data to Display Thyroid Panel: No Data to Display Infectious Disease: Coronavirus (COVID-19)(PCR) Negative (Negative) 06/10/21 11:20 06/10/21 Coronavirus 2019 Source Nasal/Nares 06/10/21 11:20 06/10/21 Blood Cultures: No Data to Display Toxicology Panel: No Data to Display Imaging and Studies Imaging and Studies Carotid Artery Summary:: 09/2014: IMPRESSION: No evidence of hemodynamically significant cervical carotid artery stenosis Anesthesia Assessment and Plan Anesthesia History Personal History: No History of Anesthesia Complications Family History: No Family History of Anesthesia Complications Exercise Tolerance Exercise Tolerance: Metabolic Equivalents>4 Pertinent Negatives Pertinent Negatives: No Major Cardiovascular Symptoms or Complaints and No Major Pulmonary Symptoms or Complaints Cardiac & Pulmonary Exam Cardiac Exam: Normal S1/S2 Heart Sounds Pulmonary Exam: Clear Bilateral Breath Sounds Airway Exam Known Difficult Airway: No Mallampati Class: 2 Mouth Opening: Normal (> 3cm) Thyromental Distance: Greater than 3 cm Neck Range of Motion: Full ROM Neck Circumference: Normal Teeth Condition: Normal Dentition ASA Classification ASA Score: ASA 2 Emergency Case?: No NPO Status NPO Status: NPO Clears >2 hours, Solids >8 hours Anesthesia Plan Resuscitation Status: Full Code Anesthesia Technique: General Anesthesia Airway Planned: Natural Airway Monitors Used: Standard Monitors Preoperative Comments:: Intermittent symptoms of GERD, verbalizes some last evening but resolved by morning. Patient will be given Bicitra.
[2021-06-12 07:09] VITALS: BMI 23.4
[2021-06-12 08:26] VITALS: BP 99/62; PULSE 67; RESP 20; TEMP 36.1; O2SAT 98
[2021-06-12 08:55] VITALS: BP 115/76; PULSE 63; RESP 18; TEMP 36; O2SAT 96
--- NOTE | 2021-06-12 09:08 | W.ANESPOSTOP ---
Postoperative Evaluation Date, Time and Location Date Performed: 06/12/21 Time Performed: 09:08 Patient Location: Day Surgery Unit Vital Signs Most Recent Imported Vital Signs: Most Recent Vital Signs Temp Pulse Resp BP Pulse Ox 36.0 C L 63 18 115/76 96 06/12/21 08:55 06/12/21 08:55 06/12/21 08:55 06/12/21 08:55 06/12/21 08:55 Pain Score Most Recent Pain Score: Most Recent Pain Score Pain Level 0 06/12/21 08:55 Assessment Mental Status: Awake (Alert & Oriented to Patient Baseline) Airway and Respiratory Function: Patent airway with normal (patient baseline) respiratory exam Cardiovascular Function: Hemodynamically Stable Hydration Status: Adequately Hydrated Nausea & Vomiting: No Nausea or Vomiting Pain: Pt. Denies Any Pain Peripheral Nerve Block: Patient did not receive a nerve block
== END 2021-06-12 09:10 | disposition home or self-care (01) ==
PROVIDERS: PCP Nurse Practitioner Family; Visit Provider Surgery
PROC: 0DJD8ZZ Inspection of Lower Intestinal Tract, Via Natural or Artificial Opening Endoscopic (ICD-10-PCS; CPT 45378; principal; 2021-06-12 07:30)
DX: Z12.11 Encounter for screening for malignant neoplasm of colon (principal); Z83.71 Family history of colonic polyps; K57.30 Diverticulosis of large intestine without perforation or abscess without bleeding; Z85.3 Personal history of malignant neoplasm of breast
CPT/HCPCS: G0105; J2001

== ENCOUNTER 2021-07-30 02:05 | Outpatient (CLI) | payer MEDICARE, SELFPAY ==
[2021-07-30 09:43] LABS: ALT 17 U/L (14-59); AST 17 U/L (15-37); Albumin 3.7 g/dL (3.4-5.0); Alkaline Phosphatase 108 U/L (46-116); Anion Gap 7.4 mmol/L (3-11); BUN 14 mg/dL (7-18); Bilirubin, Total 0.7 mg/dL (0.2-1.0); CO2 28.6 mmol/L (21.0-32.0); CREATININE 0.9 mg/dL (0.55-1.02); Calcium 8.7 mg/dL (8.5-10.1); Chloride 106 mmol/L (98-107); Glucose 77 mg/dL (74-106); Potassium 3.5 mmol/L (3.5-5.1); Sodium 142 mmol/L (136-145); Total Protein 7.1 g/dL (6.4-8.2)
[2021-07-30 15:17] LABS: Absolute Basophil Count 0.05 10^3/uL (0.0-0.2); Absolute Eosinophil Count 0.25 10^3/uL (0.0-0.7); Absolute Lymphocyte Count 0.98 10^3/uL (1.2-3.4); Absolute Monocyte Count 0.35 10^3/uL (0.1-0.8); Absolute Neutrophil Count 2.57 10^3/uL (1.2-6.7); Basophils % 1.2; HCT 39.7 % (36.0-46.0); HGB 12.4 g/dL (11.2-15.7); Lymphocytes % 23.3; MCHC 31.2 % (32.0-36.0); MPV 11.6 fL (8.0-11.0); Monocytes % 8.3; Neutrophils % 61.2; Nucleated RBC 0 %; Platelet Count 247 10^3/uL (130-400); RBC 4.27 10^6/uL (3.93-5.22); RDW 12.7 % (11.7-14.6); RDW-SD 43.5 fL
[2021-07-30 15:27] LABS: Iron 79 ug/dL (50-170); Total Iron Binding Capacity 271 ug/dL (250-450); Transferrin Sat 29 % (15-50)
[2021-07-30 16:00] LABS: Ferritin 94 ng/mL (8-252); Magnesium 2.2 mg/dL (1.8-2.4); TSH (W/Ref FT4) 1.11 uIU/mL (0.36-3.74); Vitamin B12 205 pg/mL (193-986)
== END 2021-07-30 02:06 | disposition home or self-care (01) ==
LOC: LBO 02:06
PROVIDERS: PCP Nurse Practitioner Family; Visit Provider Internal Medicine Hematology & Oncology
DX: C50.919 Malignant neoplasm of unspecified site of unspecified female breast (principal); R13.10 Dysphagia, unspecified; R07.89 Other chest pain; K21.9 Gastro-esophageal reflux disease without esophagitis; M81.0 Age-related osteoporosis without current pathological fracture; F41.8 Other specified anxiety disorders
CPT/HCPCS: 36415; 80053; 82607; 82728; 83540; 83550; 83735; 84443; 85025

== ENCOUNTER 2021-08-10 04:09 | Outpatient (CLI) | payer MEDICARE, SELFPAY ==
--- NOTE | 2021-08-31 08:46 | CER_ITS ---
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 Minimum was 48, maximum 141 There were very rare atrial and ventricular ectopic beats There was no atrial fibrillation, no high-grade AV block, no pauses greater than 3 seconds Patient symptoms corresponded to sinus rhythm in the 60s and 70s
== END 2021-08-10 04:10 | disposition home or self-care (01) ==
LOC: RT 04:09
PROVIDERS: PCP Nurse Practitioner Family; Visit Provider Nurse Practitioner Family
DX: R07.89 Other chest pain (principal)
CPT/HCPCS: 93246

== ENCOUNTER 2022-03-04 08:54 | Outpatient (CLI) | payer MEDICARE, SELFPAY ==
[2022-03-04 08:52] LABS: Abs Immature Grans 0.02 10^3/uL (0.0-0.06); Absolute Basophil Count 0.08 10^3/uL (0.0-0.2); Absolute Eosinophil Count 0.52 10^3/uL (0.0-0.7); Absolute Lymphocyte Count 1.26 10^3/uL (1.2-3.4); Absolute Monocyte Count 0.43 10^3/uL (0.1-0.8); Absolute Neutrophil Count 2.59 10^3/uL (1.2-6.7); Basophils % 1.6; Eosinophils % 10.6; HCT 38.1 % (36.0-46.0); HGB 12.2 g/dL (11.2-15.7); Immature Grans % 0.4; Lymphocytes % 25.7; MCH 28.7 pg (27.0-33.0); MCV 90 fL (80-95); MPV 10.5 fL (8.0-11.0); Monocytes % 8.8; Neutrophils % 52.9; Platelet Count 285 10^3/uL (130-400); RBC 4.25 10^6/uL (3.93-5.22); RDW 13.4 % (11.7-14.6); RDW-SD 43.8 fL
[2022-03-04 09:12] LABS: ALT 17 U/L (14-59); AST 15 U/L (15-37); Albumin 3.6 g/dL (3.4-5.0); Alkaline Phosphatase 93 U/L (46-116); Anion Gap 7.4 mmol/L (3-11); BUN 11 mg/dL (7-18); Bilirubin, Total 0.5 mg/dL (0.2-1.0); CO2 28.6 mmol/L (21.0-32.0); CREATININE 0.9 mg/dL (0.55-1.02); Calcium 8.8 mg/dL (8.5-10.1); Chloride 106 mmol/L (98-107); Glucose 90 mg/dL (74-106); Potassium 3.6 mmol/L (3.5-5.1); Sodium 142 mmol/L (136-145); Total Protein 7.1 g/dL (6.4-8.2)
== END 2022-03-04 08:55 | disposition home or self-care (01) ==
LOC: LBO 08:56
PROVIDERS: PCP Nurse Practitioner Family; Visit Provider Nurse Practitioner Family
DX: C50.411 Malignant neoplasm of upper-outer quadrant of right female breast (principal); Z17.0 Estrogen receptor positive status [ER+]; M81.0 Age-related osteoporosis without current pathological fracture; Z79.811 Long term (current) use of aromatase inhibitors
CPT/HCPCS: 36415; 80053; 85025

== ENCOUNTER → 2022-06-10 01:28 | Outpatient (CLI) | payer MEDICARE, SELFPAY ==
--- NOTE | 2022-06-10 10:58 | DI.MAMMO_ITS ---
Exam(s) MG MAMMO SCREENING 60 MIN DUR EXAM: MG MAMMO SCREENING 60 MIN DUR CLINICAL HISTORY: SCREENING, EARLY STAGE BREAST CA W/RT LUMPECTOMY, C50.911, Z17.0 TECHNIQUE: Bilateral full field digital CC and MLO mammographic images were obtained with 3D tomosyn thesis and utilizing computer aided detection (CAD). COMPARISON: Available for comparison. FINDINGS: Masses/Architectural Distortion: None seen. Postlumpectomy changes are again seen in the right breast . Microcalcifications: No suspicious pleomorphic-type are seen. Skin Thickening/Nipple Retraction: None. IMPRESSION: 1. No significant interval change with no specific features of malignancy noted. 2. Unless there is more urgent need, screening mammography is recommended, as per [employer] guidelines. 3. Findings were discussed with the patient on the date of the examination. BI-RADS Category 2 - Benign Findings Breast Density - Category C - Heterogeneously dense Breast density category C or D implies that the patient has dense breast tissue. Dense breast tissue is very common and is not abnormal but dense breast tissue can make it harder to find cancer on a ma mmogram. Also, dense breast tissue may increase their breast cancer risk. This information about the result of the mammogram report was provided to the patient to raise their awareness. Use this report when you speak with the patient about their risks for breast cancer, which includes their family hist ory. At that time, you may recommend for more screening tests (Ultrasound or MRI) as they might be us eful based on their risk. A negative radiographic report should not delay biopsy if a dominant or clinically suspicious mass is present. Up to ten percent of cancers are not identified on mammography. A negative report may reinforce clinical impression. Adenosis and dense breasts may obscure an underlying neoplasm. False positive reports average 6 to 10%. Patient will receive a letter notifying them of these results.
== END ==
PROVIDERS: PCP Nurse Practitioner Family; Visit Provider Nurse Practitioner Family
DX: Z12.31 Encounter for screening mammogram for malignant neoplasm of breast (principal); R92.8 Other abnormal and inconclusive findings on diagnostic imaging of breast
CPT/HCPCS: 77063; 77067

== ENCOUNTER 2022-09-02 15:22 | Outpatient (CLI) | payer MEDICARE, SELFPAY ==
--- NOTE | 2022-09-02 | DI.RAD_ITS ---
Exam(s) XR CHEST 2V PA LATERAL EXAM: XR CHEST 2V PA LATERAL CLINICAL HISTORY: COUGH, R05.8; ? FLUID IN LUNGS OR PNEUMONIA. TECHNIQUE: 2D digital imaging was performed. COMPARISON: CR XR CHEST 2V PA LATERAL from 11/17/2018 FINDINGS: 2 views: Heart size is normal. The mediastinum is not widened. Right lung is clear. There increased markings in left lower lobe retrocardiac region. This may be r elated to hiatal hernia at this level. There is a small nodular infiltrate laterally in the left niko g base. This measures approximately 8 x 7 millimeters. No pleural effusions. No pulmonary edema. IMPRESSION: Left lung base small nodular infiltrate measuring approximately 8 x 7 millimeters. Not evident on pr ior study of October 2018. There is possibly that this may just represent breast nipple. Recommend re peat study with bilateral metallic nipple markers in place. DATA REPOSITORY: RADIATION DOSE DELIVERED:
== END 2022-09-02 15:42 ==
LOC: DI 15:24
PROVIDERS: PCP Nurse Practitioner Family; Visit Provider Physician Assistant Medical
DX: R05.8 Other specified cough (principal); R91.8 Other nonspecific abnormal finding of lung field
CPT/HCPCS: 71046

== ENCOUNTER 2022-09-02 15:42 | Outpatient (REF) | payer MEDICARE, SELFPAY ==
[2022-09-04 11:50] LABS: COVID-19 RT-PCR UVMMC Result Negative (Negative)
== END 2022-09-02 15:43 | disposition home or self-care (01) ==
LOC: LBN 15:42
PROVIDERS: PCP Nurse Practitioner Family; Visit Provider Physician Assistant Medical
DX: Z20.822 Contact with and (suspected) exposure to COVID-19 (principal); R05.8 Other specified cough
CPT/HCPCS: U0003

== ENCOUNTER 2022-09-09 13:16 | Outpatient (CLI) | payer MEDICARE, SELFPAY ==
[2022-09-09 12:33] LABS: ALT 11 U/L (14-59); AST 15 U/L (15-37); Albumin 3.7 g/dL (3.4-5.0); Alkaline Phosphatase 99 U/L (46-116); Anion Gap 5.6 mmol/L (3-11); BUN 10 mg/dL (7-18); Bilirubin, Total 0.4 mg/dL (0.2-1.0); CO2 28.4 mmol/L (21.0-32.0); Chloride 104 mmol/L (98-107); Estimated GFR 59.86 (mL/min/1.73m2); Glucose 97 mg/dL (74-106); Sodium 138 mmol/L (136-145); Total Protein 7.6 g/dL (6.4-8.2)
== END 2022-09-09 13:17 | disposition home or self-care (01) ==
LOC: LBO 13:37
PROVIDERS: PCP Nurse Practitioner Family; Visit Provider Internal Medicine Hematology & Oncology
DX: C50.411 Malignant neoplasm of upper-outer quadrant of right female breast (principal); Z17.0 Estrogen receptor positive status [ER+]; M81.0 Age-related osteoporosis without current pathological fracture; Z79.811 Long term (current) use of aromatase inhibitors
CPT/HCPCS: 36415; 80053

== ENCOUNTER 2022-09-16 15:35 | Outpatient (CLI) | payer MEDICARE, SELFPAY ==
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
== END 2022-09-16 15:55 ==
LOC: DI 15:45
PROVIDERS: PCP Nurse Practitioner Family; Visit Provider Physician Assistant Medical
DX: R91.8 Other nonspecific abnormal finding of lung field (principal); J98.11 Atelectasis
CPT/HCPCS: 71046

== ENCOUNTER 2022-10-05 02:27 | Outpatient (CLI) | payer MEDICARE, SELFPAY ==
--- NOTE | 2022-10-05 | DI.DEXA_ITS ---
Exam(s) XR DEXA BONE DENSITY W/WO GORDON EXAM: XR DEXA BONE DENSITY W/WO GORDON CLINICAL HISTORY: ASSISTED USE AROMATASE INHIBITORS,Z79.811,OSTEOPOROSIS,RT BREAST CA TECHNIQUE: Routine DEXA evaluation of the lumbar spine, hip, or forearm. COMPARISON: Prior DEXA scan 2016 FINDINGS: Performed on a [employer] unit. Lateral image: No compression fracture evident. Lumbar Spine total T-score: -0.5. Prior 2016 reading was -0.8. Hip total T-score:-2.3. Prior 2016 reading was -2.4. Independent reading at the level of the femoral neck yields T-score of -3.3 Forearm total T-score: -5.2. Prior 2016 reading was -4.2. IMPRESSION: Bone mineral density measures in the osteoporosis range. Fracture risk is high. Note: Any spine fracture indicates 5x risk for subsequent spine fracture and 2x risk for subsequent h ip fracture. World Health Organization criteria for BMD interpretation classify patients: Normal...... T- Score at or above -1.0 Osteopenic... T- Score between -1.0 and -2.5 Osteoporosis... T-Score at or below -2.5
== END 2022-10-05 02:47 ==
LOC: DI 02:27
PROVIDERS: PCP Nurse Practitioner Family; Visit Provider Internal Medicine Hematology & Oncology
DX: Z79.811 Long term (current) use of aromatase inhibitors (principal); Z13.820 Encounter for screening for osteoporosis; M81.0 Age-related osteoporosis without current pathological fracture
CPT/HCPCS: 77080

== ENCOUNTER 2022-10-14 00:40 | Outpatient (CLI) | payer MEDICARE, SELFPAY ==
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
[2022-10-14] MEDS: Omnipaque 350 MG/ML 100 ML BTL IJ (14:28)
[2022-10-14] MEDS: Normal Saline - Diluent 50 ML VIAL IJ (14:28)
== END 2022-10-14 01:00 ==
LOC: DI 00:45
PROVIDERS: PCP Nurse Practitioner Family; Visit Provider Nurse Practitioner Family
DX: J98.11 Atelectasis (principal); R91.8 Other nonspecific abnormal finding of lung field; R05.8 Other specified cough
CPT/HCPCS: 71260; J3490

== ENCOUNTER 2022-11-12 18:55 | Outpatient (REF) | payer MEDICARE, SELFPAY ==
[2022-11-12 18:45] LABS: FREE T4 0.81 ng/dL (0.76-1.46); TSH 0.64 uIU/mL (0.36-3.74)
[2022-11-14 17:00] LABS: T3,Free 4.3 pg/mL (2.8-5.3)
== END 2022-11-12 18:56 | disposition home or self-care (01) ==
LOC: NCHCN 18:55
PROVIDERS: PCP Nurse Practitioner Family; Visit Provider Nurse Practitioner Family
DX: E04.1 Nontoxic single thyroid nodule (principal); F41.8 Other specified anxiety disorders; K21.9 Gastro-esophageal reflux disease without esophagitis
CPT/HCPCS: 84439; 84443; 84481

== ENCOUNTER 2022-12-02 03:12 | Outpatient (CLI) | payer MEDICARE, SELFPAY ==
[2022-12-02 08:40] LABS: Abs Immature Grans 0.01 10^3/uL (0.0-0.06); Absolute Basophil Count 0.07 10^3/uL (0.0-0.2); Absolute Eosinophil Count 0.32 10^3/uL (0.0-0.7); Absolute Lymphocyte Count 1.28 10^3/uL (1.2-3.4); Absolute Monocyte Count 0.41 10^3/uL (0.1-0.8); Absolute Neutrophil Count 2.39 10^3/uL (1.2-6.7); Basophils % 1.6; Eosinophils % 7.1; HCT 37.5 % (36.0-46.0); HGB 12.1 g/dL (11.2-15.7); Immature Grans % 0.2; Lymphocytes % 28.6; MCH 28.9 pg (27.0-33.0); MCHC 32.3 % (32.0-36.0); MCV 90 fL (80-95); MPV 9.7 fL (8.0-11.0); Monocytes % 9.2; Neutrophils % 53.3; Platelet Count 231 10^3/uL (130-400); RBC 4.19 10^6/uL (3.93-5.22); RDW 13.4 % (11.7-14.6); WBC 4.48 10^3/uL (4.4-10.8)
[2022-12-02 08:56] LABS: ALT 20 U/L (14-59); AST 17 U/L (15-37); Albumin 3.6 g/dL (3.4-5.0); Alkaline Phosphatase 97 U/L (46-116); BUN 13 mg/dL (7-18); Bilirubin, Total 0.6 mg/dL (0.2-1.0); CREATININE 0.9 mg/dL (0.55-1.02); Calcium 8.3 mg/dL (8.5-10.1); Chloride 110 mmol/L (98-107); Estimated GFR 67.92 (mL/min/1.73m2); Glucose 70 mg/dL (74-106); Potassium 3.7 mmol/L (3.5-5.1); Sodium 145 mmol/L (136-145); Total Protein 7.1 g/dL (6.4-8.2)
== END 2022-12-02 03:13 | disposition home or self-care (01) ==
PROVIDERS: PCP Nurse Practitioner Family; Visit Provider Internal Medicine Hematology & Oncology
DX: C50.411 Malignant neoplasm of upper-outer quadrant of right female breast (principal); Z17.0 Estrogen receptor positive status [ER+]; M81.0 Age-related osteoporosis without current pathological fracture; Z79.811 Long term (current) use of aromatase inhibitors
CPT/HCPCS: 36415; 80053; 85025

== ENCOUNTER 2022-12-17 00:13 | Outpatient (CLI) | payer MEDICARE, SELFPAY ==
--- NOTE | 2022-12-17 12:31 | DI.US_ITS ---
Exam(s) US THYROID EXAM: US THYROID CLINICAL HISTORY: THYROID NODULE, E04.1. TECHNIQUE: Ultrasound thyroid performed using standard protocol. COMPARISON: No exams were available for comparison FINDINGS: Both thyroid lobes as well as the isthmus exhibit normal size and relatively homogeneous echotexture. There are no focal findings in the right lobe. There is a single benign finding in the isthmus and a single benign finding in the left lobe. RIGHT THYROID LOBE: Measures 2 cm AP x 1.2 cm wide x 4.4 cm craniocaudal There are no nodules in the right lobe. ISTHMUS: Normal thickness. Contains a simple 3 x 2 mm cyst. LEFT THYROID LOBE: Measures 1.5 cm AP x 1.1 wide x 3.9 cm craniocaudal Is a single benign-appearing finding/nodule with details as below: This nodule exhibits the following features: Size: Measures 0.7 x 0.3 x 0.5 cm cm Composition: Mixed plsib-qwuwjr-8 points Echogenicity: Hypoechoic-2 points Shape: Wider than taller in the transverse plane-0 points Margin: Smooth-0 points Echogenic Foci: None-0 points Total points for this nodule: 3 ACR Ti-Rads Category: 3 This finding can be followed and does not require ultrasound-guided FNA at this time. LYMPH NODES: Benign-appearing lymph nodes seen both sides of the neck.. IMPRESSION: 1. Both thyroid lobes as well as the isthmus exhibit normal size. 2. There is a 7 x 3 x 5 mm TR3 nodule in the left lobe. Does not require biopsy. Recommend follow-u p thyroid ultrasound in 1 year, earlier if clinically indicated. 3. There is a benign 3 millimeter colloid cyst in the isthmus. 4. No pathologic adenopathy evident. DATA REPOSITORY:
[2022-12-17] MEDS: Omnipaque 350 MG/ML 500 ML BTL-Imaging package IJ (13:26)
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
== END 2022-12-17 00:33 ==
LOC: DI 00:13
PROVIDERS: PCP Nurse Practitioner Family; Visit Provider Nurse Practitioner Family
DX: E04.1 Nontoxic single thyroid nodule (principal)
CPT/HCPCS: 71260; 76536

== ENCOUNTER 2023-02-24 11:27 | Outpatient (CLI) | payer MEDICARE, SELFPAY ==
[2023-02-24 10:45] LABS: ALT 15 U/L (14-59); AST 14 U/L (15-37); Albumin 3.6 g/dL (3.4-5.0); Alkaline Phosphatase 63 U/L (46-116); Anion Gap 7.2 mmol/L (3-11); BUN 12 mg/dL (7-18); Bilirubin, Total 0.8 mg/dL (0.2-1.0); CO2 28.8 mmol/L (21.0-32.0); CREATININE 0.9 mg/dL (0.55-1.02); Calcium 8.9 mg/dL (8.5-10.1); Chloride 108 mmol/L (98-107); Estimated GFR 67.92 (mL/min/1.73m2); Glucose 87 mg/dL (74-106); Potassium 3.9 mmol/L (3.5-5.1); Sodium 144 mmol/L (136-145); Total Protein 7.2 g/dL (6.4-8.2)
== END 2023-02-24 11:28 | disposition home or self-care (01) ==
LOC: LBO 11:27
PROVIDERS: PCP Nurse Practitioner Family; Visit Provider Internal Medicine Hematology & Oncology
DX: C50.411 Malignant neoplasm of upper-outer quadrant of right female breast (principal); M81.0 Age-related osteoporosis without current pathological fracture; Z79.811 Long term (current) use of aromatase inhibitors; Z17.0 Estrogen receptor positive status [ER+]
CPT/HCPCS: 36415; 80053

== ENCOUNTER 2023-03-23 02:18 | Outpatient (CLI) | payer MEDICARE, SELFPAY ==
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
[2023-03-23] MEDS: Normal Saline Flush 10 ML SYR IVP (13:51)
[2023-03-23] MEDS: Omnipaque 350 MG/ML 500 ML BTL-Imaging package 70 ML IJ (13:52)
[2023-03-23] MEDS: Normal Saline - Diluent 50 ML VIAL IJ (13:52)
== END 2023-03-23 02:38 ==
LOC: DI 02:18
PROVIDERS: PCP Nurse Practitioner Family; Visit Provider Nurse Practitioner Family
DX: R91.8 Other nonspecific abnormal finding of lung field (principal)
CPT/HCPCS: 71260

== ENCOUNTER 2023-05-28 17:21 | Emergency (ER) | payer OTHER, SELFPAY ==
[2023-05-28 17:26] VITALS: BP 135/82; PULSE 88; RESP 18; TEMP 36.7; O2SAT 95
--- NOTE | 2023-05-28 18:15 | RT.EKG_ITS ---
APPROVED REPORT Exam: Resting ECG Reason for Exam: left chest pain Patient Location: E HR:73 bpm ECG Measurements Heart Rate 73 AXIS PA 147 P 55 QRSd 73 QRS 40 QT 385 T 18 QTc 423 Conclusion Sinus rhythm...normal P axis, V-rate 60- 99 Low voltage, precordial leads...precordial leads <1.0mV sinus rhythm, normal axis normal intervals non ischemic
--- NOTE | 2023-05-28 19:19 | DI.RAD_ITS ---
Exam(s) XR HAND LT COMPLETE EXAM: XR HAND LT COMPLETE CLINICAL HISTORY: left hand pain. TECHNIQUE: 2D digital imaging was performed. COMPARISON: No exams were available for comparison FINDINGS: 3 views No evidence of acute fracture or dislocation. Soft tissue swelling just distal to the ring around th e 4th finger proximal phalanx neck is noted. There is no fracture at this level. No other radiopaqu e densities. IMPRESSION: No acute osseous findings. DATA REPOSITORY: RADIATION DOSE DELIVERED:
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
--- NOTE | 2023-05-28 19:32 | DI.VRAD_ITS ---
PROCEDURE INFORMATION: Exam: XR Left Hand Exam date and time: 05/28/2023 19:06 Age: 72 years old Clinical indication: Patient HX: Left hand pain TECHNIQUE: Imaging protocol: Radiologic exam of the left hand. Views: 3 or more views. COMPARISON: No relevant prior studies available. FINDINGS: Bones/joints: The bones are demineralized. A subtle cortical step-off at the base of the 5th metacarpal is concerning for an acute nondisplaced fracture. No dislocation. Soft tissues: Swelling suggested dorsally medially. IMPRESSION: A subtle cortical step-off at the base of the 5th metacarpal is concerning for an acute nondisplaced fracture. Please correlate with the location of pain. Dictated and Authenticated by: Sheryl Chaney MD. Ordering:MARTA Aceves MD
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
== END 2023-05-28 21:43 | disposition home or self-care (01) ==
PROVIDERS: Emergency Provider Physician Assistant; PCP Nurse Practitioner Family
DX: M79.642 Pain in left hand (principal); S20.219A Contusion of unspecified front wall of thorax, initial encounter; S60.222A Contusion of left hand, initial encounter; V43.62XA Car passenger injured in collision with other type car in traffic accident, initial encounter
CPT/HCPCS: 93005; 99283; 71046; 71100; 73130; 93010; 99284

== ENCOUNTER → 2023-07-11 00:27 | Outpatient (CLI) | payer MEDICARE, SELFPAY ==
--- NOTE | 2023-07-11 | DI.MAMMO_ITS ---
Exam(s) MG MAMMO SCREENING 60 MIN DUR EXAM: MG MAMMO SCREENING 60 MIN DUR CLINICAL HISTORY: SCREENING, Z12.31, PERSONAL H/O BREAST CANCER. TECHNIQUE: Bilateral full field digital CC and MLO mammographic images were obtained with 3D tomosyn thesis and utilizing computer aided detection (CAD). COMPARISON: Prior mammograms were reviewed. This patient underwent right breast lumpectomy in August 2018. FINDINGS: There has been no significant change in the appearance and distribution of the fibroglandular tissue. No new left breast findings. Right breast lumpectomy site remains stable. No new masses nor new malignant-appearing microcalcification groups. No new significant architectural distortion. IMPRESSION: No radiographic evidence of malignancy. Stable right breast lumpectomy site. BI-RADS Category 2 - Benign Findings Breast Density - Category C - Heterogeneously dense Breast density Category C or D implies that the patient has dense breast tissue. Dense breast tissue can make it harder to find cancer on a mammogram. Dense breast tissue is also associated with an incr eased risk of breast cancer. This information about the result of the mammogram report was provided to the patient to raise their awareness. Use this report when you speak with the patient about their risks for breast cancer, which includes their family history. At that time, you may recommend additional screening tests (Ultrasoun d or MRI) as these tests may add significant information. A negative radiographic report should not delay biopsy if a dominant or clinically suspicious mass is present. Up to ten percent of cancers are not identified on mammography. A negative report may reinforce clinical impression. Adenosis and dense breasts may obscure an underlying neoplasm. False positive reports average 6 to 10%. Patient will receive a letter notifying them of these results.
== END ==
PROVIDERS: PCP Nurse Practitioner Family; Visit Provider Nurse Practitioner Family
DX: Z12.31 Encounter for screening mammogram for malignant neoplasm of breast (principal)
CPT/HCPCS: 77063; 77067

== ENCOUNTER 2023-10-27 05:10 | Outpatient (CLI) | payer MEDICARE, SELFPAY ==
[2023-10-27 13:46] LABS: ALT 10 U/L (14-59); AST 14 U/L (15-37); Albumin 3.9 g/dL (3.4-5.0); Alkaline Phosphatase 134 U/L (46-116); Anion Gap 10.3 mmol/L (3-11); BUN 16 mg/dL (7-18); Bilirubin, Total 0.8 mg/dL (0.2-1.0); CO2 27.7 mmol/L (21.0-32.0); CREATININE 1.1 mg/dL (0.55-1.02); Calcium 9.4 mg/dL (8.5-10.1); Chloride 105 mmol/L (98-107); Estimated GFR 53.06 (mL/min/1.73m2); Glucose 91 mg/dL (74-106); Potassium 4.1 mmol/L (3.5-5.1); Sodium 143 mmol/L (136-145); Total Protein 7.6 g/dL (6.4-8.2)
== END 2023-10-27 05:11 | disposition home or self-care (01) ==
LOC: LBO 05:10
PROVIDERS: PCP Nurse Practitioner Family; Visit Provider Internal Medicine Hematology & Oncology
DX: Z79.811 Long term (current) use of aromatase inhibitors (principal); C50.411 Malignant neoplasm of upper-outer quadrant of right female breast; Z17.0 Estrogen receptor positive status [ER+]
CPT/HCPCS: 36415; 80053

== ENCOUNTER 2023-11-25 14:01 | Outpatient (REF) | payer MEDICARE, SELFPAY ==
[2023-11-25 21:55] LABS: Calculated LDL 141 mg/dL (<100); Cholesterol 242 mg/dL (<200); HDL Cholesterol 54 mg/dL (40-60); TSH 1.19 uIU/Ml (0.36-3.74); Triglyceride 237 mg/dL (<150)
[2023-11-25 22:06] LABS: Vitamin D 25 Total 5.2 ng/mL (30-100)
[2023-11-25 22:13] LABS: FREE T4 0.84 ng/dL (0.76-1.46)
[2023-11-26 22:30] LABS: T3,Free 3.9 pg/mL (2.8-5.3)
== END 2023-11-25 14:02 | disposition home or self-care (01) ==
LOC: NCHCN 14:01
PROVIDERS: PCP Nurse Practitioner Family; Visit Provider Nurse Practitioner Family
DX: I25.10 Atherosclerotic heart disease of native coronary artery without angina pectoris (principal); E04.1 Nontoxic single thyroid nodule; M81.0 Age-related osteoporosis without current pathological fracture
CPT/HCPCS: 80061; 82306; 84439; 84443; 84481

== ENCOUNTER → 2024-01-10 01:59 | Outpatient (CLI) | payer MEDICARE, SELFPAY ==
--- NOTE | 2024-01-10 | DI.US_ITS ---
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 TECHNIQUE: Ultrasound thyroid performed using standard protocol. COMPARISON: CT CT CHEST W from 12/17/2022 US US THYROID from 12/17/2022 CR,XR XR RIBS LT W PA LAT CHEST from 05/28/2023 FINDINGS: Both thyroid lobes as well as the isthmus again exhibit normal size and relatively homogeneous echote xture. There is a solitary focal nodule which is again noted to be in the left thyroid lobe Characteristics of this nodule are as follows: Size: Measures 0.6 x 0.3 x 0.5 cm Composition: Mixed solid-cystic= 1 point Echogenicity: Isoechoic= 1 point Shape: Wider than taller-0 points Margin: Smooth- 0 points Echogenic Foci: Contains punctate echogenic foci= 3 points Total Points for this nodule: 5 ACR Ti-Rads Category: TR4 This TR 4 level nodule does not require biopsy as it measures less than 1.5 cm. LYMPH NODES: There are now abnormal appearing lymph nodes bilaterally. On the left side of the neck t here is a 9 by 7 x 4 mm abnormal appearing lymph node. Another slightly larger lymph node measuring 1 .4 x 0.5 x 1.2 cm exhibits benign appearance. On the opposite-right side there is an abnormal appearing lymph node measuring 16 x 4 x 3 mm. IMPRESSION: 1. Stable solitary benign-appearing left thyroid lobe nodule which does not require ultrasound-guided biopsy at this time. It is a TR 4 level nodule and measures less than 1.5 cm. Therefore does not req uire biopsy. 2. No new thyroid nodules identified. 3. There are few abnormal appearing lymph nodes in the neck now evident. These probably not related t o the thyroid findings. Recommend appropriate follow-up to rule out systemic abnormality. DATA REPOSITORY:
== END ==
PROVIDERS: PCP Nurse Practitioner Family; Visit Provider Nurse Practitioner Family
DX: E04.1 Nontoxic single thyroid nodule (principal); R59.0 Localized enlarged lymph nodes
CPT/HCPCS: 76536

== ENCOUNTER → 2024-01-30 02:35 | Outpatient (CLI) | payer MEDICARE, SELFPAY ==
--- NOTE | 2024-01-30 | DI.US_ITS ---
Exam(s) US SOFT TISSUE HEAD OR NECK EXAM: US SOFT TISSUE HEAD OR NECK CLINICAL HISTORY: Enlarged lymph nodes, R59.9. TECHNIQUE: Ultrasound was performed using standard protocol. COMPARISON: No exams were available for comparison FINDINGS: Sonographic assessment utilizing grayscale and color Doppler imaging was performed and targeted to th e area of clinical concern. There are lymph nodes seen in the neck bilaterally which are unremarkable sonographically. There are hypoechoic with a hyperechoic vascular hilum. The largest on the right measures 1.6 x 0.5 x 1.3 cm. The largest on the left measures 1.2 x 0.5 x 1.1 cm. IMPRESSION: Sonographically normal appearing lymph nodes in the neck. DATA REPOSITORY:
== END ==
PROVIDERS: PCP Nurse Practitioner Family; Visit Provider Nurse Practitioner Family
DX: R59.0 Localized enlarged lymph nodes (principal)
CPT/HCPCS: 76536

== ENCOUNTER 2024-02-21 15:33 | Outpatient (REF) | payer MEDICARE, SELFPAY ==
[2024-02-21 20:55] LABS: ALT 18 U/L (14-59); AST 16 U/L (15-37); Albumin 3.9 g/dL (3.4-5.0); Alkaline Phosphatase 93 U/L (46-116); Anion Gap 6.7 mmol/L (3-11); BUN 12 mg/dL (7-18); Bilirubin, Total 0.72 mg/dL (0.2-1.0); CO2 29.3 mmol/L (21.0-32.0); CREATININE 0.8 mg/dL (0.55-1.02); Calcium 8.2 mg/dL (8.5-10.1); Calculated LDL 122 mg/dL (<100); Chloride 108 mmol/L (98-107); Cholesterol 212 mg/dL (<200); Estimated GFR 77.75 (mL/min/1.73m2); Glucose 82 mg/dL (74-106); HDL Cholesterol 62 mg/dL (40-60); Potassium 4.6 mmol/L (3.5-5.1); Sodium 144 mmol/L (136-145); Total Protein 7.1 g/dL (6.4-8.2); Triglyceride 143 mg/dL (<150)
== END 2024-02-21 15:34 | disposition home or self-care (01) ==
LOC: NCHCN 15:33
PROVIDERS: PCP Nurse Practitioner Family; Visit Provider Nurse Practitioner Family
DX: E78.5 Hyperlipidemia, unspecified (principal)
CPT/HCPCS: 80053; 80061

== ENCOUNTER 2024-05-10 13:48 | Outpatient (CLI) | payer MEDICARE, SELFPAY ==
[2024-05-10 14:18] LABS: ALT 15 U/L (14-59); AST 13 U/L (15-37); Albumin 3.7 g/dL (3.4-5.0); Alkaline Phosphatase 119 U/L (46-116); Anion Gap 7.4 mmol/L (3-11); BUN 16 mg/dL (7-18); Bilirubin, Total 0.51 mg/dL (0.2-1.0); CO2 30.6 mmol/L (21.0-32.0); Calcium 8.8 mg/dL (8.5-10.1); Chloride 106 mmol/L (98-107); Estimated GFR 59.49 (mL/min/1.73m2); Glucose 93 mg/dL (74-106); Potassium 3.6 mmol/L (3.5-5.1); Sodium 144 mmol/L (136-145); Total Protein 7.5 g/dL (6.4-8.2)
[2024-05-11 07:44] LABS: Calculated LDL 158 mg/dL (<100); Cholesterol 277 mg/dL (<200); HDL Cholesterol 57 mg/dL (40-60); Triglyceride 311 mg/dL (<150)
== END 2024-05-10 13:49 | disposition home or self-care (01) ==
LOC: LBO 13:48
PROVIDERS: PCP Nurse Practitioner Family; Visit Provider Internal Medicine Hematology & Oncology
DX: E78.5 Hyperlipidemia, unspecified (principal)
CPT/HCPCS: 36415; 80053; 80061

== ENCOUNTER 2024-07-21 14:24 | Outpatient (CLI) | payer MEDICARE, SELFPAY ==
--- NOTE | 2024-07-21 14:50 | DI.RAD_ITS ---
Exam(s) XR CHEST 2V PA LATERAL EXAM: XR CHEST 2V PA LATERAL CLINICAL HISTORY: pna. TECHNIQUE: 2D digital imaging was performed. COMPARISON: CR,XR XR RIBS LT W PA LAT CHEST from 05/28/2023 FINDINGS: 2 views: Moderate size retrocardiac hiatal hernia again noted. Heart size is normal. The mediastinum is not widened. No confluent infiltrates nor pleural effusions. No pulmonary edema. However, on the frontal view th ere is a subtle suggestion of a possible right upper lobe nodule measuring 1.6 by 1.0 cm. There is p ossibly that this is just the anterior aspect of the 2nd right rib but is more evident than on prior study. No nodule seen in the left lung. No pleural effusions IMPRESSION: Possible 16 x 10 mm right upper lobe nodule. CT scan recommended. Moderate size hiatal hernia again evident. DATA REPOSITORY: RADIATION DOSE DELIVERED:
--- NOTE | 2024-07-21 15:10 | DI.VRAD_ITS ---
PROCEDURE INFORMATION: Exam: XR Chest Exam date and time: 07/21/2024 2:45 PM Age: 73 years old Clinical indication: Other: Pna TECHNIQUE: Imaging protocol: Radiologic exam of the chest. Views: 2 views. COMPARISON: CR XR RIBS LT W PA LAT CHEST 05/28/2023 7:09 PM FINDINGS: Lungs: Hyperinflated emphysematous lungs. No focal consolidation. Pleural spaces: Unremarkable. No pleural effusion. No pneumothorax. Heart/Mediastinum: Unremarkable. No cardiomegaly. Vasculature: Unfolding of the thoracic aorta. Bones/joints: Small multilevel anterior osteophytes of the thoracic spine. IMPRESSION: No acute cardiopulmonary process. Dictated and Authenticated by: Oliver Lerner MD. Ordering:CHRISTOPHER Zafar MD
== END 2024-07-21 14:44 ==
PROVIDERS: PCP Nurse Practitioner Family; Visit Provider Nurse Practitioner Family
DX: R05.9 Cough, unspecified (principal); K44.9 Diaphragmatic hernia without obstruction or gangrene; R91.8 Other nonspecific abnormal finding of lung field
CPT/HCPCS: 71046

== ENCOUNTER 2024-08-17 00:16 | Outpatient (CLI) | payer MEDICARE, SELFPAY ==
--- NOTE | 2024-08-17 15:01 | DI.CT_ITS ---
Exam(s) CT CHEST WO EXAM: CT CHEST WO CLINICAL HISTORY: Lung field abnormal, R91.8-other nonspecific abnormal finding of lung field. TECHNIQUE: Multi planar reconstructions were performed. CONTRAST MATERIAL: None COMPARISON: CT CT CHEST W from 03/23/2023 CR,XR XR CHEST 2V PA LATERAL from 07/21/2024 FINDINGS: CHEST: LUNGS: There is no significant nodule in the right upper lobe to correspond to the possible finding d escribed on the recent chest radiograph. However, in the lateral segment of the right middle lobe there is a peripherally located nodular infi ltrate measuring 8 by 4 mm, not evident on prior CT scan of 03/23/2023. No other significant focal r ight lung findings and no pleural effusion. In the opposite-left lung there is mild infiltrate again noted in the inferior lingular segment. Also platelike atelectasis in the posterior basal segment o f the left lower lobe. No pleural effusions evident on either side. MEDIASTINUM: There is no obvious hilar nor mediastinal adenopathy. Visualized thyroid unremarkable.Th ere is a moderate-large hiatal hernia again noted, unchanged. CARDIAC: Heart size is normal. There is no pericardial effusion.Caliber of the thoracic aorta is wit hin normal limits. VISUALIZED UPPER ABDOMEN:Cysts in the liver appear unchanged. No adrenal masses. OSSEOUS: No significant osseous lesions.No fractures evident.. IMPRESSION: 1. There is an 8 x 4 mm nodular infiltrate in the right middle lobe which was not evident on prior CT scan of 03/23/2023. Recommend follow-up CT scan in 6 months 2. There is no nodule in the right upper lobe corresponding to possible finding on recent chest radio graph. 3. Mild infiltrate again noted in the inferior lingular segment of the left lung, unchanged from prev ious. 4. No pleural effusions and no intrathoracic adenopathy. 5. Moderate-large size hiatal hernia again noted, unchanged. RADIATION DOSE DELIVERED: 98.56mGy.cm Total DLP DATA REPOSITORY: All CT scans at this facility are submitted to the National Radiology Data Registry (NRDR) Dose Index Registry (DIR) with the [employer] (ACR). RADIATION OPTIMIZATION: All CT scans at this facility use at least one of these dose optimization te chniques: automated exposure control; mA and/or kV adjustment per patient size (includes targeted exa ms where dose is matched to clinical indication); or iterative reconstruction.
== END 2024-08-17 00:36 ==
LOC: DI 00:16
PROVIDERS: PCP Nurse Practitioner Family; Visit Provider Nurse Practitioner Family
DX: R91.8 Other nonspecific abnormal finding of lung field (principal)
CPT/HCPCS: 71250

== ENCOUNTER 2024-08-17 01:02 | Outpatient (CLI) | payer MEDICARE, SELFPAY ==
[2024-08-17 15:28] LABS: BUN 12 mg/dL (7-18); CREATININE 0.9 mg/dL (0.55-1.02); Calcium 8.9 mg/dL (8.5-10.1); Chloride 109 mmol/L (98-107); Estimated GFR 67.08 (mL/min/1.73m2); Glucose 87 mg/dL (74-106); Sodium 146 mmol/L (136-145)
== END 2024-08-17 01:03 | disposition home or self-care (01) ==
LOC: LBO 01:02
PROVIDERS: PCP Nurse Practitioner Family; Visit Provider Nurse Practitioner Family
DX: R91.8 Other nonspecific abnormal finding of lung field (principal)
CPT/HCPCS: 36415; 80048

== ENCOUNTER 2024-09-27 02:46 | Outpatient (CLI) | payer MEDICARE, SELFPAY ==
--- NOTE | 2024-09-27 11:31 | DI.MAMMO_ITS ---
Exam(s) MG MAMMO SCREENING 60 MIN DUR EXAM: MG MAMMO SCREENING 60 MIN DUR CLINICAL HISTORY: Rt breast CA s/p lumpectomy, C50.411, Z17.0; osteoporosis, M81.0; long-term TECHNIQUE: Bilateral full field digital CC and MLO mammographic images were obtained with 3D tomosyn thesis and utilizing computer aided detection (CAD). COMPARISON: Available for comparison. FINDINGS: Masses/Architectural Distortion: The patient is status post right lumpectomy. No suspicious masses o r new areas of architectural distortion are present. Microcalcifications: No suspicious pleomorphic-type are seen. Skin Thickening/Nipple Retraction: None. IMPRESSION: 1. No significant interval change with no specific features of malignancy noted. 2. Unless there is more urgent need, screening mammography is recommended, as per [employer] guidelines. 3. Findings were discussed with the patient on the date of the examination. BI-RADS Category 2 - Benign Findings Breast Density - Category C - Heterogeneously dense Breast density category C or D implies that the patient has dense breast tissue. Dense breast tissue is very common and is not abnormal but dense breast tissue can make it harder to find cancer on a ma mmogram. Also, dense breast tissue may increase their breast cancer risk. This information about the result of the mammogram report was provided to the patient to raise their awareness. Use this report when you speak with the patient about their risks for breast cancer, which includes their family hist ory. At that time, you may recommend for more screening tests (Ultrasound or MRI) as they might be us eful based on their risk. A negative radiographic report should not delay biopsy if a dominant or clinically suspicious mass is present. Up to ten percent of cancers are not identified on mammography. A negative report may reinforce clinical impression. Adenosis and dense breasts may obscure an underlying neoplasm. False positive reports average 6 to 10%. Patient will receive a letter notifying them of these results.
== END 2024-09-27 03:06 ==
PROVIDERS: PCP Nurse Practitioner Family; Visit Provider Nurse Practitioner Family
DX: C50.411 Malignant neoplasm of upper-outer quadrant of right female breast (principal); Z17.0 Estrogen receptor positive status [ER+]; M81.0 Age-related osteoporosis without current pathological fracture; Z79.811 Long term (current) use of aromatase inhibitors; Z12.31 Encounter for screening mammogram for malignant neoplasm of breast; R92.333 Mammographic heterogeneous density, bilateral breasts; D24.1 Benign neoplasm of right breast
CPT/HCPCS: 77063; 77067

== ENCOUNTER 2024-10-10 04:42 | Outpatient (CLI) | payer MEDICARE, SELFPAY ==
[2024-10-10 12:53] LABS: ALT 15 U/L (14-59); AST 14 U/L (15-37); Albumin 3.5 g/dL (3.4-5.0); Alkaline Phosphatase 94 U/L (46-116); Anion Gap 5.8 mmol/L (3-11); BUN 17 mg/dL (7-18); Bilirubin, Total 0.86 mg/dL (0.2-1.0); CO2 28.2 mmol/L (21.0-32.0); CREATININE 0.8 mg/dL (0.55-1.02); Calcium 8.6 mg/dL (8.5-10.1); Chloride 110 mmol/L (98-107); Estimated GFR 77.27 (mL/min/1.73m2); Glucose 91 mg/dL (74-106); Potassium 4.1 mmol/L (3.5-5.1); Sodium 144 mmol/L (136-145)
== END 2024-10-10 04:43 | disposition home or self-care (01) ==
LOC: LBO 04:43
PROVIDERS: PCP Nurse Practitioner Family; Visit Provider Internal Medicine Hematology & Oncology
DX: C50.411 Malignant neoplasm of upper-outer quadrant of right female breast (principal); Z17.0 Estrogen receptor positive status [ER+]; Z79.811 Long term (current) use of aromatase inhibitors
CPT/HCPCS: 36415; 80053

== ENCOUNTER → 2024-11-07 13:38 | Outpatient (BNVA) | payer MEDICARE, SELFPAY | PROVIDERS: PCP Nurse Practitioner Family; Referring Provider Nurse Practitioner Family; Visit Provider Physician Assistant Surgical | DX: R91.8 Other nonspecific abnormal finding of lung field (principal); C50.911 Malignant neoplasm of unspecified site of right female breast | CPT/HCPCS: 99215 ==

== ENCOUNTER 2024-11-09 00:03 | Outpatient (CLI) | payer MEDICARE, SELFPAY ==
--- NOTE | 2024-11-09 | DI.RAD_ITS ---
Exam(s) XR LUMBAR SPINE COMPLETE EXAM: XR LUMBAR SPINE COMPLETE CLINICAL HISTORY: Pain in rt hip, M25.551. TECHNIQUE: 2D digital imaging was performed. COMPARISON: CR XR DEXA BONE DENSITY W/WO GORDON from 10/05/2022 FINDINGS: Six views No evidence of acute fracture. There is 1.3 cm anterior listhesis of L4 upon L5 which appears to be related to advanced facet arthropathy. There is also moderate disc space narrowing at this level. T here is advanced disc space narrowing at L5-S1 level. There is no listhesis of L5 upon S1. There is advanced disc space narrowing at T12-L1 level with mild retrolisthesis T12 on L1. Other dis c spaces in the lumbar spine exhibit only mild narrowing. There is degenerative scoliosis convex left. There are multilevel facet joint degenerative changes, most prominent at the lower 3 levels, right-sided worse than left. The sacroiliac joints appear un remarkable. There are no osseous lesions. IMPRESSION: Degenerative scoliosis and multilevel degenerative facet arthropathy and degenerative disc disease. Also degenerative anterolisthesis of L4 upon L5 related to advanced facet arthropathy at this level. No fractures evident DATA REPOSITORY: RADIATION DOSE DELIVERED:
--- NOTE | 2024-11-09 | DI.RAD_ITS ---
Exam(s) XR HIP RT COMPLETE AP PELVIS EXAM: XR HIP RT COMPLETE AP PELVIS CLINICAL HISTORY: Pain in rt hip, M25.551. TECHNIQUE: 2D digital imaging was performed. COMPARISON: No exams were available for comparison FINDINGS: Two views There is no evidence of pelvic nor hip fracture. There is no hip joint space narrowing. However, th ere are calcifications off the superolateral aspect of the right hip acetabulum which appear less den se than typical ununited apophysis ease and may be related to labral pathology. The actual joint spa ce is relatively preserved although there is a degenerative small degenerative subarticular cyst in t he acetabulum at this level and on the frogleg lateral view there is a small osteophyte on the infero medial aspect of the right femoral head IMPRESSION: Mild degenerative changes in the right hip as described above. DATA REPOSITORY: RADIATION DOSE DELIVERED:
== END 2024-11-09 00:23 ==
LOC: DI 00:03
PROVIDERS: PCP Nurse Practitioner Family; Visit Provider Nurse Practitioner Family
DX: M16.0 Bilateral primary osteoarthritis of hip (principal); M41.86 Other forms of scoliosis, lumbar region; M51.362 Other intervertebral disc degeneration, lumbar region with discogenic back pain and lower extremity pain
CPT/HCPCS: 72110; 73502

== ENCOUNTER 2025-01-22 01:33 | Outpatient (CLI) | payer MEDICARE, SELFPAY ==
--- NOTE | 2025-01-22 | DI.US_ITS ---
Exam(s) US THYROID EXAM: US THYROID CLINICAL HISTORY: E04.1 Nontoxic single thyroid nodule. TECHNIQUE: Ultrasound thyroid performed using standard protocol. COMPARISON: US US THYROID from 12/17/[address] CHEST W from 03/23/2023 US US SOFT TISSUE HEAD OR NECK from 01/30/2024 FINDINGS: Both thyroid lobes again exhibit normal size. There is a solitary benign-appearing nodule again note d in the left thyroid lobe which has not increased in size, presently measuring 0.5 x 0.3 x 0.3 cm Grading of this nodule is as follows Composition: Mixed [id number]-9 points Echogenicity: Hypoechoic-2 points Shape: Wider than taller-0 points Margin: Indistinct-0 points Echogenic Foci: None-0 points Total points for this nodule: 3 ACR Ti-Rads Category: 3 This TR 3 level nodule does not require biopsy LYMPH NODES: There few benign-appearing lymph nodes on both sides the neck. However, there are also a few abnormal appearing lymph nodes in both sides the neck evident on the present study. This requi res further investigation. IMPRESSION: 1. Stable benign-appearing solitary TR 3 level nodule in left thyroid lobe. 2. Incidentally noted is what appears to be significant lymphadenopathy both sides the neck. This is most probably related to thyroid disease 3. Recommend correlation with past medical history and consider contrast infused CT scan of the neck, chest, abdomen, and pelvis to rule out incidental pathology such as lymphoma DATA REPOSITORY:
== END 2025-01-22 01:53 ==
LOC: DI 01:33
PROVIDERS: PCP Nurse Practitioner Family; Visit Provider Nurse Practitioner Family
DX: E04.1 Nontoxic single thyroid nodule (principal)
CPT/HCPCS: 76536

== ENCOUNTER → 2025-01-28 13:05 | Outpatient (BNVA) | payer MEDICARE, SELFPAY | PROVIDERS: PCP Nurse Practitioner Family; Referring Provider Nurse Practitioner Family; Visit Provider Student in an Organized Health Care Education/Training Program | DX: M16.11 Unilateral primary osteoarthritis, right hip (principal); M70.61 Trochanteric bursitis, right hip | CPT/HCPCS: 99213 ==

== ENCOUNTER → 2025-02-13 12:56 | Outpatient (BNVA) | payer MEDICARE, SELFPAY | PROVIDERS: PCP Nurse Practitioner Family; Referring Provider Nurse Practitioner Family; Visit Provider Physician Assistant Surgical | DX: R91.8 Other nonspecific abnormal finding of lung field (principal); Z85.3 Personal history of malignant neoplasm of breast | CPT/HCPCS: 99214 ==

== ENCOUNTER 2025-02-18 02:14 | Outpatient (CLI) | payer MEDICARE, SELFPAY ==
--- NOTE | 2025-02-18 | DI.CT_ITS ---
Exam(s) CT NECK CHEST ABD PEL W EXAM: CT NECK CHEST ABD PEL W CLINICAL HISTORY: Localized enlarged lymph nodes R59.0 Cervical lymphadenopathy TECHNIQUE: Imaging Protocol: Axial computed tomography images with coronal and sagittal reformatted images were created and reviewed. Computer aided detection (CAD) was utilized. CONTRAST MATERIAL: Intravenous: Omnipaque 350 Contrast volume:120 ml Oral: yes / COMPARISON: CT CT CHEST W from 10/14/[address] CHEST W from 12/17/[address] CHEST WO from 08/17/2024 US US THYROID from 01/22/2025 FINDINGS: Neck: Parotids/submandibular: Normal. Thyroid: Tiny hypodensity in the left lobe. Lymphadenopathy: There are mildly enlarged lymph nodes posterior to the left sternocleidomastoid muscle, largest measuring 16 millimeters in length. There are few mildly enlarged lymph node seen anterior to the right sternocleidomastoid, largest measuring 17 millimeters in greatest dimension. The maintained in normal ovoid appearance and show normal enhancement. Carotids/Jugular: Within normal limits. Soft tissues: The floor the mouth is unremarkable. The epiglottis and vocal cords are within normal limits. Bones: Advanced degenerative disc changes from C4-5 through C7-T1. No fracture. No lytic or blastic lesions. The visualized portions of the brain are unremarkable. Chest: Tracheobronchial tree: Mild right middle lobe bronchiectasis. Mediastinum and Flores: Moderate-sized hiatal hernia. No dominant adenopathy or fluid collection. Pulmonary parenchyma: No consolidation or dominant measurable mass. Small areas of tree-in-bud opacities noted at the posterior inferior right upper and left upper lobes as well as right middle lobe. Pleura: No effusion or pneumothorax. Heart/Aorta: Thoracic aorta non-dilated. The heart is not dilated. Pulmonary arteries: No evidence of emboli. Bones: Degenerative changes lower 3rd thoracic region. No fracture. No lytic or blastic lesions. ABDOMEN: Liver: Normal density. Stable cyst in the superior right lobe. Stable hemangioma inferior right lobe. No suspicious mass. Gallbladder and biliary tract: No radiodense calculus or dilation. Pancreas: Normal density, no abnormal calcifications or inflammatory process. Spleen: Normal. Kidneys: Normal size, contour and axis. No radiodense stones or obstructive uropathy. No suspicious masses seen. Adrenal glands: No masses seen. Abdominal Aorta: Abdominal portion non-dilated. No evidence of adenopathy. PELVIS: Bladder: Symmetric distention, no gross wall thickening. Bowel: Sigmoid diverticulosis. No evidence of diverticulitis. Appendix normal. No obstruction. Peritoneal cavity: No ascites, collection or mesenteric inflammatory response. Reproductive: Unremarkable. Bones: Degenerative disc changes and facet degenerative changes. No evidence of adenopathy. IMPRESSION: Mildly enlarged cervical lymph nodes which maintain normal shape enhancement. Evidence of adenopathy in the chest abdomen or pelvis. Mild tree-in-bud opacities in the right middle lobe in both upper lobes. Mild right middle lobe bronchiectasis. This has an infectious versus inflammatory appearance. RADIATION DOSE DELIVERED: 578.55mGy.cm Total DLP DATA REPOSITORY: All CT scans at this facility are submitted to the National Radiology Data Registry (NRDR) Dose Index Registry (DIR) with the [employer] (ACR). RADIATION OPTIMIZATION: All CT scans at this facility use at least one of these dose optimization techniques: automated exposure control; mA and/or kV adjustment per patient size (includes targeted exams where dose is matched to clinical indication); or iterative reconstruction.
[2025-02-18 09:54] LABS: Estimated GFR 59.12 (mL/min/1.73m2)
[2025-02-18] MEDS: Barium Sulfate 2% W/V-Berry Smoothie 450 ML BTL PO ×2 (09:54→09:55)
[2025-02-18] MEDS: Omnipaque 350 MG/ML 100 ML BTL IJ (11:53)
[2025-02-18] MEDS: Omnipaque 350 MG/ML 50 ML BTL 20 ML IJ (11:54)
[2025-02-18] MEDS: Normal Saline - Diluent 50 ML VIAL IJ (11:56)
== END 2025-02-18 02:34 ==
PROVIDERS: PCP Nurse Practitioner Family; Visit Provider Nurse Practitioner Family
DX: R59.0 Localized enlarged lymph nodes (principal)
CPT/HCPCS: 70491; 74177; 71260; 82565; J3490; Q9967

== ENCOUNTER → 2025-04-09 14:25 | Outpatient (BNVA) | payer MEDICARE, SELFPAY | PROVIDERS: PCP Nurse Practitioner Family; Referring Provider Nurse Practitioner Family; Visit Provider Internal Medicine Pulmonary Disease | DX: J47.9 Bronchiectasis, uncomplicated (principal); R91.8 Other nonspecific abnormal finding of lung field; R05.9 Cough, unspecified; Z23 Encounter for immunization | CPT/HCPCS: 99215; 90471; 36415; 90684 ==

== ENCOUNTER 2025-04-09 15:48 | Outpatient (REF) | payer MEDICARE, SELFPAY ==
[2025-04-11 11:18] LABS: Complement, Total 61 U/mL (30-75)
== END 2025-04-09 15:49 | disposition home or self-care (01) ==
LOC: LBN 15:48
PROVIDERS: PCP Nurse Practitioner Family; Visit Provider Internal Medicine Pulmonary Disease
DX: J47.9 Bronchiectasis, uncomplicated (principal); R06.00 Dyspnea, unspecified
CPT/HCPCS: 82784; 82785; 86038; 86162

== ENCOUNTER 2025-05-07 08:20 | Outpatient (CLI) | payer MEDICARE, SELFPAY ==
[2025-05-07 15:45] LABS: ALT 13 U/L (14-59); AST 17 U/L (15-37); Albumin 3.7 g/dL (3.4-5.0); Alkaline Phosphatase 103 U/L (46-116); Anion Gap 8.2 mmol/L (3-11); BUN 16 mg/dL (7-18); Bilirubin, Total 0.6 mg/dL (0.2-1.0); CO2 29.8 mmol/L (21.0-32.0); Calcium 9.0 mg/dL (8.5-10.1); Chloride 107 mmol/L (98-107); Estimated GFR 59.12 (mL/min/1.73m2); Glucose 77 mg/dL (74-106); Potassium 4.0 mmol/L (3.5-5.1); Sodium 145 mmol/L (136-145); Total Protein 7.3 g/dL (6.4-8.2)
== END 2025-05-07 08:21 | disposition home or self-care (01) ==
LOC: LBO 05-08 08:20
PROVIDERS: PCP Nurse Practitioner Family; Visit Provider Nurse Practitioner Family
DX: C50.411 Malignant neoplasm of upper-outer quadrant of right female breast (principal); Z17.0 Estrogen receptor positive status [ER+]
CPT/HCPCS: 36415; 80053

== ENCOUNTER 2025-05-07 11:32 | Outpatient (CLI) | payer MEDICARE, SELFPAY ==
--- NOTE | 2025-05-07 | DI.CT_ITS ---
Exam(s) CT NECK W EXAM: CT NECK W CLINICAL HISTORY: RT BREAST CA,C50.411, Z17.0 ? CHANGE in neck nodes on ct 02/18/25. TECHNIQUE: Imaging Protocol: Axial computed tomography images with coronal and sagittal reformatted images were created and reviewed CONTRAST MATERIAL: Intravenous: Omnipaque 350 Contrast volume:100 ml contrast COMPARISON: CT CT NECK CHEST ABD PEL W from 02/18/2025 FINDINGS: Parotids: Normal. Submandibular glands: Normal. Thyroid gland: Normal. Lymph nodes: 1.6cm node posterior to the left sternocleidomastoid muscle, unchanged. 1.7 centimeter node noted anterior to the right sternocleidomastoid muscle, unchanged. There are scattered lymph nodes seen along the level one to level three all measuring less than 8 mm in short axis diameter. Carotids arteries: No significant stenosis or dissection. Vertebral arteries: No significant stenosis or dissection. Soft tissues: The floor the mouth is unremarkable. The tonsils and adenoids are unremarkable. The epiglottis and vocal cords are within normal limits. Lungs: Images through both lung apices are unremarkable. Bones: Degenerative changes of the cervical spine. Visualized portions of the brain and orbits: Unremarkable. Sinuses and mastoids: Mucosal thinking of the right maxillary sinus. IMPRESSION: Stable mildly enlarged cervical lymph nodes. RADIATION DOSE DELIVERED: Total DLP DATA REPOSITORY: All CT scans at this facility are submitted to the National Radiology Data Registry (NRDR) Dose Index Registry (DIR) with the [employer] (ACR). RADIATION OPTIMIZATION: All CT scans at this facility use at least one of these dose optimization techniques: automated exposure control; mA and/or kV adjustment per patient size (includes targeted exams where dose is matched to clinical indication); or iterative reconstruction.
[2025-05-07] MEDS: Normal Saline - Diluent 50 ML VIAL IJ (16:23)
[2025-05-07] MEDS: Normal Saline Flush 10 ML SYR IVP (16:23)
[2025-05-07] MEDS: Omnipaque 350 MG/ML 100 ML BTL IJ (16:24)
== END 2025-05-07 11:52 ==
LOC: DI 11:33
PROVIDERS: PCP Nurse Practitioner Family; Visit Provider Internal Medicine Hematology & Oncology
DX: C50.411 Malignant neoplasm of upper-outer quadrant of right female breast (principal); Z17.0 Estrogen receptor positive status [ER+]; R59.0 Localized enlarged lymph nodes
CPT/HCPCS: 70491; 82565; J3490

== ENCOUNTER 2025-07-15 02:23 | Outpatient (CLI) | payer MEDICARE, SELFPAY ==
--- NOTE | 2025-07-18 08:52 | W.PFT ---
Date of service: 07/15/25 Time of Service: 15:29 Pulmonary Function Test Result Indications: Bronchiectasis Impression 1. Good patient effort was noted. ATS standards for reproducibility were met. 2. Normal spirometry. 3. TLC was normal. No evidence of restrictive lung disease 4. DLCO was normal indicating normal alveolar gas exchange
== END 2025-07-15 02:24 | disposition home or self-care (01) ==
LOC: RT 02:23
PROVIDERS: PCP Nurse Practitioner Family; Visit Provider Internal Medicine Pulmonary Disease
DX: J47.9 Bronchiectasis, uncomplicated (principal)
CPT/HCPCS: 94010; 94726; 94729